=== PATIENT | female | born 1975 | race Caucasian/White ===

== ENCOUNTER 2022-10-15 11:07 | Outpatient (REF) | payer OTHER, SELFPAY ==
[2022-10-15 14:42] LABS: Alanine Aminotransferase 20 U/L (0-31); Anion Gap 11 (12-20); Aspartate Amino Transferase 17 U/L (5-31); Blood Urea Nitrogen 12 mg/dL (9-16); Calcium 9.5 mg/dL (8.4-10.2); Carbon Dioxide 27 mmol/L (22-29); Chloride 104 mmol/L (96-108); Cholesterol 243 mg/dL; Estimated Glomerular Filt Rate > 60; Glucose Fasting 95 mg/dL (60-99); HDL Cholesterol 39 mg/dL; LDL Cholesterol Calculated 138 mg/dl; Potassium 4.2 mmol/L (3.3-5.1); Sodium 138 mmol/L (135-145); Triglycerides 332 mg/dL; Vitamin D 25-OH Total 39.7 ng/mL (>30)
== END 2022-10-15 11:08 | disposition home or self-care (01) ==
LOC: HO.HMGCLDS 11:07
PROVIDERS: PCP Internal Medicine; Visit Provider Internal Medicine
DX: Z00.01 Encounter for general adult medical examination with abnormal findings (principal)
CPT/HCPCS: 36415; 80048; 80061; 82306; 84450; 84460

== ENCOUNTER → 2022-12-17 10:55 | Outpatient (BNVA) | payer OTHER, SELFPAY | PROVIDERS: PCP Internal Medicine; Referring Provider Internal Medicine; Visit Provider Physician Assistant | DX: Z13.89 Encounter for screening for other disorder (principal) ==

== ENCOUNTER 2023-05-31 08:37 | Day surgery (SDC) | payer OTHER, SELFPAY ==
[2023-05-29 11:00] VITALS: BMI 25.5
--- NOTE | 2023-05-30 10:13 | HO.ANESPROP2 ---
Documented by User: Carmel Paulino NP 05/30/23 10:14 HPI - Anesthesia Eval Consult details Narrative: 48yo F for Colonoscopy PMFSH Active Problems Active Problems: All Active Problems (Updated 01/15/23 @ 15:43 by Joshua Cantu MD) Paronychia of finger of right hand (Acute) Constipation (Acute) Encounter for screening colonoscopy (Acute) Otitis media (Acute) Past Medical History Medical History (Updated 05/31/23 @ 08:49 by Laura Gleason RN) History of COVID-19 Hx of cervical cancer Family History Family History Mother Anxiety Migraine Sister Mental health disorder Father Prostate cancer Paternal Uncle Colon cancer Skin cancer (melanoma) Surgical History Surgical History (Updated 05/31/23 @ 08:56 by Laura Gleason RN) Hx of section Hx of hernia repair Hx of tonsillectomy Social History Social History Household Members Other:: 2 daughters, 1 grandson- Housing: Apartment Patient Tobacco Use Status: Former Tobacco user Quit Date: 2000 e-Cigarette/Vaping Use: Never Used Use of substances other than those prescribed or required for medical reasons: No Are you DNR?: No Advance Directives: No Advance Directives Information Provided: Yes Current occupational status: employed Cognitive needs: No Hearing needs: No Vision needs: Yes Meds Allergies Allergy/AdvReac Type Severity Reaction Status Date / Time amoxicillin AdvReac Vomiting Verified 05/31/23 08:54 azithromycin AdvReac Vomiting Verified 05/31/23 08:54 Penicillins AdvReac rash Verified 05/31/23 08:54 Sulfa (Sulfonamide AdvReac Anaphylaxis Verified 05/31/23 08:54 Antibiotics) tetracycline AdvReac Vomiting Verified 05/31/23 08:54 Home Medications Medication Instructions Recorded Confirmed Last Taken Type levonorgestrel 21 mcg/24 hours (8 1 device intrauterine DIRECTED 07/28/22 10/15/22 Unknown History yrs) 52 mg intrauterine device (Mirena) loratadine 10 mg tablet (Claritin) 10 mg PO DAILY 07/28/22 10/15/22 Unknown History ivermectin 1 % topical cream 1 appl topical DAILY 10/15/22 10/15/22 Unknown History (Soolantra) Probiotic 1 PO DAILY 05/31/23 Unknown History multivitamin tab 05/31/23 05/31/23 Unknown History omega-3 fatty acids 1 PO DAILY 05/31/23 Unknown History Exam Exam Date and Time: May 30, 2023 1013 Height,Weight and Vital Signs: Height 5 ft 1 in Weight 61.235 kg Assessment and Plan Assessment Anesthesia Assessment: Chart Reviewed Documented by User: Flower Garza MD 05/31/23 09:20 PMFSH Past Medical History Medical History (Updated 05/31/23 @ 08:49 by Laura Gleason RN) History of COVID-19 Hx of cervical cancer Family History Family History Mother Anxiety Migraine Sister Mental health disorder Father Prostate cancer Paternal Uncle Colon cancer Skin cancer (melanoma) Family history of problems with anesthesia: No Surgical History Surgical History (Updated 05/31/23 @ 08:56 by Laura Gleason, RN) Hx of section Hx of hernia repair Hx of tonsillectomy History of Problems with Anesthesia: No Social History Social History Household Members Other:: 2 daughters, 1 grandson- Housing: Apartment Patient Tobacco Use Status: Former Tobacco user Quit Date: 2000 e-Cigarette/Vaping Use: Never Used Use of substances other than those prescribed or required for medical reasons: No Are you DNR?: No Advance Directives: No Advance Directives Information Provided: Yes Current occupational status: employed Cognitive needs: No Hearing needs: No Vision needs: Yes Meds Allergies Allergy/AdvReac Type Severity Reaction Status Date / Time amoxicillin AdvReac Vomiting Verified 05/31/23 08:54 azithromycin AdvReac Vomiting Verified 05/31/23 08:54 Penicillins AdvReac rash Verified 05/31/23 08:54 Sulfa (Sulfonamide AdvReac Anaphylaxis Verified 05/31/23 08:54 Antibiotics) tetracycline AdvReac Vomiting Verified 05/31/23 08:54 Home Medications Medication Instructions Recorded Confirmed Last Taken Type levonorgestrel 21 mcg/24 hours (8 1 device intrauterine DIRECTED 07/28/22 10/15/22 Unknown History yrs) 52 mg intrauterine device (Mirena) loratadine 10 mg tablet (Claritin) 10 mg PO DAILY 07/28/22 10/15/22 Unknown History ivermectin 1 % topical cream 1 appl topical DAILY 10/15/22 10/15/22 Unknown History (Soolantra) Probiotic 1 PO DAILY 05/31/23 Unknown History multivitamin tab 05/31/23 05/31/23 Unknown History omega-3 fatty acids 1 PO DAILY 05/31/23 Unknown History Exam Airway Mallampati Class: II TM Dist: >3cm Neck ROM: Full Assessment and Plan Assessment Anesthesia Assessment: Anesthesia Plan Discussed Final Anesthetic Review Family History of Problems with Anesthesia: No History of Problems with Anesthesia: No NPO: Yes ASA Class: II Final Preanesthetic Review: No Changes in Pt Med Stat, Meds/Allgs Chart Reviewed, Consent Obtained/Reviewed and Anes Risks/Benef Reviewed Patient Risk: Low Procedure Risk: Low Anesthetic Plan Anesthetic Plan: MAC: Disposition: Standard PACU
--- NOTE | 2023-05-31 08:45 | MHC.SHP ---
Pre-Procedural Eval Section A Date of Service: 05/31/23 The patient is an INPATIENT: No The History & Physical has been completed within 30 days and I have reviewed it.: No Section B Chief Complaint: screening, family hx of colon cancer and polyps Relevant Family History (Specify if Yes): Yes Relevant Social History: Tobacco Use (former smoker) Present Medications: see Short Stay Collaborative assessment Medical History: Significant History (hx of COVID 19 infection) History of Previous Operations: Relevant previous surgery/procedure and date(s) (Hx of section Hx of tonsillectomy) Allergies: Allergies Allergy/AdvReac Type Severity Reaction Status Date / Time amoxicillin AdvReac Vomiting Verified 01/15/23 14:41 azithromycin AdvReac Vomiting Verified 01/15/23 14:41 Penicillins AdvReac rash Verified 01/15/23 14:41 Sulfa (Sulfonamide AdvReac Anaphylaxis Verified 01/15/23 14:41 Antibiotics) tetracycline AdvReac Vomiting Verified 01/15/23 14:41 Review of Systems Sugical H&P ROS: Negative: Constitution, Cardiovascular and Gastrointestinal Exam Surgical H&P Exam: Normal: Heart, Normal: Lungs, Normal: Extremities and Normal: Abdomen Plan Diagnosis/Plan: Unchanged I have reviewed the history and physical and performed a pertinent physical examination on my patient. No changes have occurred unless specified. Time Spent With Patient Time: Total time managing care of this patient today ____ minutes.
--- NOTE | 2023-05-31 08:51 | P.OP_ITS ---
Operative Note Operative Note Date of Service: 05/31/23 Narrative: COLONOSCOPY TILL CECUM WITH SNARE POLYPECTOMY, SUBMUCOSAL INJECTION AND HEMOCLIP PLACEMENT Pre-op diagnosis: screening, family history of colon polyps and colon cancer (two uncles in their 50's) Post-op diagnosis:? colon polyp, diverticulosis Endoscopist:? Graeme Vora MD Anesthesia:?MAC Consent: Indications for the procedure and potential complications of bleeding, perforation, reaction to medications and missed diagnosis were discussed with the patient and informed consent was obtained. Instrument: Olympus PCF H 190 L variable stiffness pediatric colonoscope Monitoring: Vital signs and clinical assessment, intermittent blood pressure monitoring, continuous EKG monitoring, Pulse oximetry and Carbon Dioxide monitoring were done throughout the procedure. Please see anesthesia flowsheet. Colon withdrawl time was 16 minutes. Procedure: The patient was placed in the left lateral decubitis position and pre-procedure medications were administered. After a digital rectal examination of the ano-rectum, the video colonoscope was inserted into the rectum and advanced through the colon to the cecum. The colonoscope was slowly withdrawn in a retrograde panoramic fashion and the colon mucosa was carefully examined including a retroflexed view of the rectum. Findings and interventions are described below. Procedure Difficulty: Without difficulty Findings: Terminal Ileum: Not evaluated Cecum: Normal Ascending Colon: A 15 to 18 mm flat polyp in the distal AC at 75 cms. Polyp was raised with 2 cc of normal saline and removed with a hot stiff snare. Polypectomy site was closed with 1 hemoclip and marked by Temitope ink. Transverse Colon: Normal Descending Colon: moderate diverticulosis Sigmoid Colon: severe diverticulosis with luminal narrowing Rectum: Normal Ano-rectum: normal Colon preparation: Excellent Impression and Post Procedure Diagnosis: Colonoscopy Findings: One medium sized polyp removed Moderate to severe diverticulosis seen in the left colon Plan: Await pathology results Patient has an appointment on 06/10/23 in the GI Clinic with BENSON Schuler. Repeat Colonoscopy interval based on path results - in 1 year if polyp is adenomatous to check polypectomy site at 75 cms and 5 years if polyps is h yperplastic (due to positive family history). Above findings were reviewed with the patient and colon polyps and diverticulosis handouts were given in the discharge area
[2023-05-31 09:03] VITALS: BP 130/77; PULSE 96; RESP 15; TEMP 36.2; O2SAT 98
[2023-05-31 09:19] LABS: UPreg QC Valid YES; Urine Pregnancy NEGATIVE (NEGATIVE)
[2023-05-31] MEDS: Lactated Ringers 1,000 ML 100 ML IVCONT (09:22)
[2023-05-31 10:05] VITALS: BP 97/53; PULSE 80; RESP 16; TEMP 36.3; O2SAT 95
[2023-05-31 10:23] VITALS: BP 109/70; PULSE 77; RESP 16; TEMP 36.2; O2SAT 99
== END 2023-05-31 10:50 | disposition home or self-care (01) ==
PROVIDERS: Anesthesiology; Nurse Practitioner; PCP Internal Medicine; Visit Provider Internal Medicine Gastroenterology
PROC: 0DJD8ZZ Inspection of Lower Intestinal Tract, Via Natural or Artificial Opening Endoscopic (ICD-10-PCS; CPT 45378; principal; 2023-05-31 09:50)
DX: Z12.11 Encounter for screening for malignant neoplasm of colon (principal); D12.2 Benign neoplasm of ascending colon; K57.30 Diverticulosis of large intestine without perforation or abscess without bleeding; K59.00 Constipation, unspecified; Z79.899 Other long term (current) drug therapy; Z85.41 Personal history of malignant neoplasm of cervix uteri; Z86.16 Personal history of COVID-19; Z88.0 Allergy status to penicillin; Z88.1 Allergy status to other antibiotic agents; Z88.2 Allergy status to sulfonamides; Z87.891 Personal history of nicotine dependence
CPT/HCPCS: 45385; 45381; 81025; 88305

== ENCOUNTER → 2023-05-31 08:37 | Outpatient (BNV) | payer OTHER, SELFPAY | PROVIDERS: PCP Internal Medicine; Visit Provider Internal Medicine Gastroenterology | DX: Z12.11 Encounter for screening for malignant neoplasm of colon (principal); Z83.71 Family history of colonic polyps; Z80.0 Family history of malignant neoplasm of digestive organs; K63.5 Polyp of colon | CPT/HCPCS: 45381; 45385 ==

== ENCOUNTER 2023-06-10 08:57 | Outpatient (AMB) | payer OTHER, SELFPAY ==
--- NOTE | 2023-06-10 09:04 | MHC.OFFVIS ---
Intake Vital Signs 06/10/23 09:15 Height 5 ft 1 in Weight 136 lb BMI 25.7 BP 113/64 Blood Pressure Location Lt brachial Position Sitting Pulse 72 Intake Visit Reasons: S/P [place]; Dr. Vora Intake Note: Patient follow up for constipation and colonoscopy results. Patient cc: between Constipation and diarrhea, abdominal bloating, and heartburn. Denies any other GI issues. 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: No Accompanied by: Self / Same As Patient Allergies amoxicillin Adverse Reaction (Verified 06/10/23 09:03) Vomiting azithromycin Adverse Reaction (Verified 06/10/23 09:03) Vomiting Penicillins Adverse Reaction (Verified 06/10/23 09:03) rash Sulfa (Sulfonamide Antibiotics) Adverse Reaction (Verified 06/10/23 09:03) Anaphylaxis tetracycline Adverse Reaction (Verified 06/10/23 09:03) Vomiting HPI HPI Comments History of Present Illness Details A 48 y/o female follows up after recent index screening colonoscopy with polypectomy-she expresses her satisfaction with her experience with staff She has alternating stool pattern however- reviewed procedure report and pathology She has no nausea, vomiting, hematemesis, hematochezia fever PFSH Medical History History of COVID-19 Hx of cervical cancer Surgical History Hx of section Hx of colonoscopy Hx of hernia repair Hx of tonsillectomy Family History Mother Anxiety Migraine Sister Mental health disorder Father Prostate cancer Paternal Uncle Colon cancer Skin cancer (melanoma) Social History Household Members Other:: 2 daughters, 1 grandson- Housing: Apartment Patient Tobacco Use Status: Former Tobacco user Quit Date: 2000 e-Cigarette/Vaping Use: Never Used Current occupational status: employed Cognitive needs: No Hearing needs: No Vision needs: Yes Review of Systems Const All systems reviewed & are unremarkable except as noted in HPI and below Card Denies chest pain and Denies dyspnea Resp Denies dyspnea GI Denies abdominal pain and Denies hematochezia Physical Exam Vital Signs: Last Vital Signs Pulse 72 06/10/23 09:15 BP 113/64 08/07/23 09:15 BMI result Body Mass Index 25.7 Const General: cooperative, healthy appearing, comfortable and no acute distress Orientation/consciousness: patient oriented x3 Limitations: no limitations Neuro General: patient oriented x3 Extrem General: Yes full ROM Psych Appearance: grossly normal and well kempt Mental Status: mental status grossly normal Speech and movement: Normal speech and movement present and Clear speech present Affect: normal affect Attitude: cooperative Thought process: Normal thought process present Thought content: Normal thought content present Insight: Good insight present (Psych) Judgement: Good judgement present (Psych) Results Reviewed Results Reviewed: Findings: Terminal Ileum: Not evaluated Cecum:? Normal Ascending Colon:? A 15 to 18 mm flat polyp in the distal AC at 75 cms. Polyp was raised with 2 cc of normal saline and removed with a hot stiff snare. ? Polypectomy site was closed with 1 hemoclip and marked by Temitope ink. Transverse Colon:? Normal Descending Colon: ? moderate diverticulosis Sigmoid Colon: ? severe diverticulosis with luminal narrowing Rectum:? Normal Ano-rectum: ? normal Colon preparation: Excellent ? Impression and Post Procedure Diagnosis: Colonoscopy Findings: One medium sized polyp removed Moderate to severe diverticulosis seen in the left colon Plan: Await pathology results Patient has an appointment on 06/10/23 in the GI Clinic with BENSON Schuler. Repeat Colonoscopy interval based on path results - in 1 year if polyp is adenomatous to check polypectomy site at 75 cms and 5 years if polyps is hyperplastic (due to positive family history). Name:? Age/Sex: 48/F Attending: Graeme Vora MD : 1975 Submitted by: Graeme Vora MD Copies to: Henny Piña MD MR #: [id number] ? Status: DEP [facility] [place] Collected: 05/31/23 Location: [facility] Received: 05/31/23 Diagnosis Colon, ascending at 75 cm, polyp:? Sessile serrated lesion/polyp without dysplasia. Clinical History Pre-Op Dx:? Screening, family history of colon cancer Post-Op Dx: Colon polyp, diverticulosis Microscopic Description Multiple microscopic sections reviewed. Assessment & Plan Assessment & Plan (1) Sessile colonic polyp: Code(s): K63.5 - Polyp of colon Plan: Repeat colonoscopy 1 year (2) Diverticulosis of colon: Comment: The ER protocol-discussed Literature given- Maintain high-fiber diet Foods to avoid Code(s): K57.30 - Diverticulosis of large intestine without perforation or abscess without bleeding Plan: Literature given Plan Repeat colonoscopy- 1 year- Diverticulosis-ER protocol HFD AFDR- begin screening by age 40 Patient Instructions: 48-year-old female follows up after recent index screening colonoscopy with polypectomy Review procedure report and pathology opportunity for questions answered to her satisfaction Repeat colonoscopy 1 year All first-degree relatives begin screening by age 40 Literature given diverticulosis/high-fiber diet Discussed ER protocol Encouraged to call with questions or concerns Appreciate the opportunity assist in the care the patient Coding Level of Care Code Est Pt Level 3 (42053) Diagnoses Sessile colonic polyp K63.5 Diverticulosis of colon K57.30 Time Spent (min) 25
[2023-06-10 09:15] VITALS: BP 113/64; PULSE 72; BMI 25.7
== END 2023-06-10 09:47 | disposition home or self-care (01) ==
PROVIDERS: PCP Internal Medicine; Visit Provider Physician Assistant
DX: K63.5 Polyp of colon (principal); K57.30 Diverticulosis of large intestine without perforation or abscess without bleeding
CPT/HCPCS: 99213

== ENCOUNTER → 2023-06-10 08:57 | Outpatient (BNVA) | payer OTHER, SELFPAY | PROVIDERS: Visit Provider Physician Assistant ==

== ENCOUNTER 2024-03-19 07:46 | Outpatient (REF) | payer OTHER, SELFPAY ==
[2024-03-19 10:22] LABS: Hematocrit 41.2 % (37.0-47.0)
[2024-03-19 10:47] LABS: Alanine Aminotransferase 36 U/L (0-31); Anion Gap 12 (12-20); Aspartate Amino Transferase 27 U/L (5-31); Blood Urea Nitrogen 13 mg/dL (9-16); Calcium 9.4 mg/dL (8.4-10.2); Carbon Dioxide 26 mmol/L (22-29); Chloride 105 mmol/L (96-108); Cholesterol 260 mg/dL (<200); Estimated Glomerular Filt Rate > 60; Glucose Fasting 96 mg/dL (60-99); HDL Cholesterol 36 mg/dL (>40); LDL Cholesterol Calculated 147 mg/dL (<100); Potassium 4.2 mmol/L (3.3-5.1); Sodium 139 mmol/L (135-145); Triglycerides 389 mg/dL (<150)
[2024-03-19 11:04] LABS: Vitamin D 25-OH Total 62.2 ng/mL (>30)
== END 2024-03-19 07:47 | disposition home or self-care (01) ==
LOC: HO.HMGCLDS 07:46
PROVIDERS: PCP Internal Medicine; Visit Provider Internal Medicine
DX: Z13.220 Encounter for screening for lipoid disorders (principal); Z13.1 Encounter for screening for diabetes mellitus; K63.5 Polyp of colon
CPT/HCPCS: 36415; 80048; 80061; 82306; 84450; 84460; 85014; 85018

== ENCOUNTER 2024-04-02 15:13 | Outpatient (AMB) | payer OTHER, SELFPAY ==
--- NOTE | 2024-04-02 15:15 | MHC.PC.OV ---
Vital Signs 04/02/24 15:16 Height 5 ft 1 in Weight 143 lb BMI 27.0 BP 130/80 Blood Pressure Location Lt brachial Position Sitting Pulse 71 Pulse Source Pulse Oximeter Pulse Oximetry (%) 98 Oxygen Delivery Method Room Air Intake Visit Reasons: Rash left leg Intake Note: Pt is here today c/o rash Lt leg appeared yesterday Allergies amoxicillin Adverse Reaction (Verified 04/06/24 02:58) Vomiting azithromycin Adverse Reaction (Verified 04/06/24 02:58) Vomiting Penicillins Adverse Reaction (Verified 04/06/24 02:58) rash Sulfa (Sulfonamide Antibiotics) Adverse Reaction (Verified 04/06/24 02:58) Anaphylaxis tetracycline Adverse Reaction (Verified 04/06/24 02:58) Vomiting Medication List - Last Reconciled 04/06/24 by Henny Piña MD gabapentin 100 mg PO BEDTIME ivermectin 1% (Soolantra) 1 appl topical DAILY levonorgestrel (Mirena) 1 device intrauterine DIRECTED loratadine (Claritin) 10 mg PO DAILY multivitamin tabs omega-3 fatty acids 1 PO DAILY omeprazole 10 mg PO DAILY [Probiotic 1 PO DAILY] valacyclovir 1,000 mg PO Q8H 7 days Tobacco use date assessed: 04/02/24 Dental Screening Dental Screen Date: 04/02/24 Did you have a dental visit in the last 12 months?: Yes Did you have a dental problem in the last 6 months where you did not have access to dental care?: Yes Was dental information given to patient?: Patient has dentist HPI Rash left leg HPI Details 49-year-old lady here today complaining of her rash appearing on her left posterior thigh yesterday. She however has been feeling a burning sensation on the same area 2 days ago, now with appearance of rash which seems to be spreading. Complains of severe pruritus and burning sensation specially at night PFSH Medical History (Updated 04/02/24 @ 16:07 by Henny Piña MD) Herpes zoster Hx of cervical cancer History of COVID-19 Surgical History Hx of colonoscopy Hx of hernia repair Hx of section Hx of tonsillectomy Family History Mother Anxiety Migraine Sister Mental health disorder Father Prostate cancer Paternal Uncle Colon cancer Skin cancer (melanoma) Social History Household Members Other:: 2 daughters, 1 grandson- Housing: Apartment Patient Tobacco Use Status: Former Tobacco user e-Cigarette/Vaping Use: Never Used Current occupational status: employed Cognitive needs: No Hearing needs: No Vision needs: Yes Questionnaire PHQ-9 Over the last 2 weeks, how often have you been bothered by any of the following problems? 1. Little interest or pleasure in doing things: not at all 2. Feeling down, depressed, or hopeless: not at all 3. Trouble falling or staying asleep, or sleeping too much: not at all 4. Feeling tired or having little energy: not at all 5. Poor appetite or overeating: not at all 6. Feeling bad about yourself - or that you are a failure or have let yourself or your family down: not at all 7. Trouble concentrating on things, such as reading the newspaper or watching television: not at all 8. Moving or speaking so slowly that other people could have noticed. Or the opposite - being so fidgety or restless that you have been moving around a lot more than usual: not at all 9. Thoughts that you would be better off or of hurting yourself in some way: not at all Total score: 0 Depression Screening Interpretation: Negative Depression Screening Done: Yes 55843 - PHQ-9 Billing: Yes Source: Developed by Drs. Schuyler Rivera, Nelda Tobin, Carroll Salgado and colleagues, with an educational adriano from [employer]. Thrive Questionnaire Date Thrive assessed: 04/02/24 I am a: Patient What is your living situation today?: I have a steady place to live Within the past 12 months, did the food you bought not last and you didn't have the money to get more?: Never true Within the past 12 months, did you worry whether your food would run out before you got money to buy more?: Never true Do you have trouble paying for medicines?: No Do you have trouble getting transportation to medical appointments?: No Do you have trouble paying your heating and electricity bill?: No Do you have trouble taking care of your child, family member or friend?: No Do you have trouble with day-to-day activities such as bathing, preparing meals, shopping, managing finances, etc.?: No Are you currently unemployed and looking for a job?: No Are you interested in more education?: No THRIVE Score: 0 AUDIT C Alcohol Use Questionnaire (AUDIT-C) 1. How often do you have a drink containing alcohol?: Never Total Score: 0 IRASEMA-7 AMB Questionnaire IRASEMA-7 Date IRASEMA - 7 assessed: 04/02/24 Feeling nervous, anxious, or on edge: 0 = Not at all Not being able to stop or control worryin = Not at all Worrying too much about different things: 0 = Not at all Trouble relaxin = Not at all Being so restless that it is hard to sit still: 0 = Not at all Becoming easily annoyed or irritable: 0 = Not at all Feeling afraid as if something awful might happen: 0 = Not at all Total IRASEMA-7 score (0-4 normal; 5-9 mild; 10-14 moderate; 15-21 severe): 0 Source: Developed by Drs. Schuyler Rivera, Nelda Tobin, Carroll Salgaod and colleagues, with an educational adriano from [employer]. Review of Systems Const All systems reviewed & are unremarkable except as noted in HPI and below Physical exam (Primary Care) Vital Signs: Last Vital Signs Pulse 71 04/02/24 15:16 BP 130/80 04/02/24 15:16 Pulse Ox 98 04/02/24 15:16 Oxygen Delivery Method Room Air 04/02/24 15:16 BMI result Body Mass Index 27.0 Tobacco/Smoking Status: Tobacco use Status Tobacco use date assessed 04/02/24 04/02/24 15:24 Patient Tobacco Use Status Former Tobacco user 04/02/24 15:24 e-Cigarette/Vaping Use Never Used 04/02/24 15:24 PHQ-9: PHQ-9 Score PHQ-9: Total score 0 04/02/24 16:07 Depression Screening Interpretation: Negative Thrive Assessment: Date of Thrive Assessment Date Thrive assessed 04/02/24 04/02/24 15:24 Const General: comfortable and no acute distress Orientation/consciousness: patient oriented x3 HENMT Head: Yes atraumatic Ears: hearing grossly normal bilaterally and EAC's normal General nose exam: Normal external nose present Face and sinus: Yes face symmetric Mouth: Normal oral and palatal mucosa present, oropharynx normal and moist mucous membranes Eyes General: appearance normal, both eyes and all related structures Neck Neck: Yes full ROM, Yes no lymphadenopathy and Yes supple Chest Breast/axilla inspection: normal inspection of the breasts Breast/axilla palpation: normal palpation of the breasts Resp Effort & Inspection: normal respiratory effort and able to speak in complete sentences Auscultation: clear to auscultation bilaterally Cardio Rate: regular rate Rhythm: regular rhythm Heart sounds: S1 normal heart sound present and S2 normal heart sound present GI Inspection: Yes normal to inspection Palpation (GI): Soft to palpation, nontender, no guarding and Palpable mass present Auscultation: normal bowel sounds General: Yes no CVA tenderness and Yes 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) Back/Spine/Pelvis Back: no CVA tenderness Skin Other: Vesicular rash with erythematous base on left posterior thigh Neuro General: patient oriented x3 Extrem General: Yes full ROM, Yes no joint enlargement, Yes no clubbing, cyanosis or edema, Yes no calf tenderness and Yes normal gait Assessment and Plan Assessment & Plan (1) Herpes zoster: Comment: Left posterior thigh Code(s): B02.9 - Zoster without complications Qualifiers: Herpes zoster complications: without complications Qualified Code(s): B02.9 - Zoster without complications Plan: Prescriptions sent for valacyclovir 1000 mg per tablet to take 1 every 8 hours for 7 days., she was also given prescription for gabapentin 100 mg per capsule, to take 1 capsule initially at bedtime, may increase dose to 2 capsules at night if pain and pruritus persists. She may also try using [id number] capsaicin cream as directed to relieve itching and pain over is affected area Medications: New valacyclovir 1,000 mg PO Q8H 21 tabs 0RF 7 days B02.9 - Zoster without complications gabapentin 100 mg PO BEDTIME 30 caps 0RF B02.9 - Zoster without complications Coding Level of Care Code Est Pt Level 4 (60978) Diagnoses Herpes zoster without complication B02.9 Herpes zoster complications: without complications
[2024-04-02 15:16] VITALS: BP 130/80; PULSE 71; O2SAT 98; BMI 27.0
== END 2024-04-02 16:23 | disposition home or self-care (01) ==
PROVIDERS: PCP Internal Medicine; Visit Provider Internal Medicine
DX: B02.9 Zoster without complications (principal)
CPT/HCPCS: 99214

== ENCOUNTER 2024-04-08 08:14 | Outpatient (AMB) | payer OTHER, SELFPAY ==
--- NOTE | 2024-04-08 08:29 | MHC.PC.OV ---
Vital Signs 04/08/24 08:31 Height 5 ft 1 in Weight 144 lb BMI 27.2 BP 118/68 Blood Pressure Location Lt brachial Position Sitting Pulse 79 Pulse Source Pulse Oximeter Pulse Oximetry (%) 96 Oxygen Delivery Method Room Air Intake Visit Reasons: PE Intake Note: Pt is here today for her PE: Last mammogram 04/18/23, papsmear 12/26/23, colonoscopy 05/31/23 Allergies amoxicillin Adverse Reaction (Verified 04/08/24 08:39) Vomiting azithromycin Adverse Reaction (Verified 04/08/24 08:39) Vomiting Penicillins Adverse Reaction (Verified 04/08/24 08:39) rash Sulfa (Sulfonamide Antibiotics) Adverse Reaction (Verified 04/08/24 08:39) Anaphylaxis tetracycline Adverse Reaction (Verified 04/08/24 08:39) Vomiting Medication List - Last Reconciled 04/08/24 by Henny Piña MD ivermectin 1% (Soolantra) 1 appl topical DAILY levonorgestrel (Mirena) 1 device intrauterine DIRECTED loratadine (Claritin) 10 mg PO DAILY multivitamin tabs omega-3 fatty acids 1 PO DAILY omeprazole 10 mg PO DAILY [Probiotic 1 PO DAILY] valacyclovir 1,000 mg PO Q8H 7 days Tobacco use date assessed: 04/08/24 Dental Screening Dental Screen Date: 04/08/24 Did you have a dental visit in the last 12 months?: Yes Did you have a dental problem in the last 6 months where you did not have access to dental care?: Yes Was dental information given to patient?: Patient has dentist HPI PE HPI Details 49-year-old lady here today for her physical exam. Recently diagnosed with herpes zoster,, with rash almost cleared out and minimal pain over site. She is up-to-date with her mammogram, last done 04/18/23, up-to-date with her papsmear done 12/26/23, and screening colonoscopy 05/31/23 has been feeling well with no complaints at present time. [facility] Medical History (Updated 04/08/24 @ 08:59 by Henny Piña MD) Mixed dyslipidemia Herpes zoster Hx of cervical cancer History of COVID-19 Surgical History Hx of colonoscopy Hx of hernia repair Hx of section Hx of tonsillectomy Family History Mother Anxiety Migraine Sister Mental health disorder Father Prostate cancer Paternal Uncle Colon cancer Skin cancer (melanoma) Social History Household Members Other:: 2 daughters, 1 grandson- Housing: Apartment Patient Tobacco Use Status: Former Tobacco user e-Cigarette/Vaping Use: Never Used Current occupational status: employed Cognitive needs: No Hearing needs: No Vision needs: Yes Questionnaire PHQ-9 Over the last 2 weeks, how often have you been bothered by any of the following problems? Depression Screening Interpretation: Negative Depression Screening Done: Yes Source: Developed by Drs. Schuyler Rivera, Nelda Tobin, Carroll Salgado and colleagues, with an educational adriano from [employer]. Thrive Questionnaire Date Thrive assessed: 04/02/24 IRASEMA-7 AMB Questionnaire IRASEMA-7 Date IRASEMA - 7 assessed: 04/02/24 Source: Developed by Drs. Schuyler Rivera, Nelda Tobin, Carroll Salgado and colleagues, with an educational adriano from [employer]. Review of Systems Const Denies body aches, Denies fatigue, Denies fever(s), Denies headache(s) and Denies weakness Eyes Details: Goes to [facility] for her routine eye exam Denies change in vision ENT Denies dizziness, Denies headache(s), Denies nasal congestion, Denies nasal discharge and Denies sore throat Card Denies chest pain, Denies lightheadedness, Denies palpitations and Denies dyspnea Resp Denies chest congestion, Denies cough, Denies dyspnea and Denies wheezing GI Denies abdominal pain, Denies change in bowel habits and Denies heartburn Denies hematuria, Denies urinary frequency, Denies dysuria and Denies urinary urgency Musc Reports no additional complaints Skin/Breast Denies breast pain and Denies breast mass Neuro Denies dizziness, Denies headache(s) and Denies weakness Psych Reports no additional complaints Endo Denies fatigue, Denies polydipsia, Denies polyuria and Denies palpitations Primo/Lymph Denies easy bruising Aller/Immun Denies seasonal rhinorrhea and Denies wheezing Physical exam (Primary Care) Vital Signs: Last Vital Signs Pulse 79 04/08/24 08:31 BP 118/68 04/08/24 08:31 Pulse Ox 96 04/08/24 08:31 Oxygen Delivery Method Room Air 04/08/24 08:31 BMI result Body Mass Index 27.2 Tobacco/Smoking Status: Tobacco use Status Tobacco use date assessed 04/08/24 04/08/24 08:31 Patient Tobacco Use Status Former Tobacco user 04/08/24 08:31 e-Cigarette/Vaping Use Never Used 04/08/24 08:31 Depression Screening Interpretation: Negative Thrive Assessment: Date of Thrive Assessment Date Thrive assessed 04/02/24 04/08/24 08:31 Const General: comfortable and no acute distress Orientation/consciousness: patient oriented x3 HENMT Head: Yes atraumatic Ears: hearing grossly normal bilaterally and EAC's normal General nose exam: Normal external nose present Face and sinus: Yes face symmetric Mouth: Normal oral and palatal mucosa present, oropharynx normal and moist mucous membranes Eyes General: appearance normal, both eyes and all related structures Neck Neck: Yes full ROM, Yes no lymphadenopathy and Yes supple Chest Breast/axilla inspection: normal inspection of the breasts Breast/axilla palpation: normal palpation of the breasts Resp Effort & Inspection: normal respiratory effort and able to speak in complete sentences Auscultation: clear to auscultation bilaterally Cardio Rate: regular rate Rhythm: regular rhythm Heart sounds: S1 normal heart sound present and S2 normal heart sound present GI Inspection: Yes normal to inspection Palpation (GI): Soft to palpation, nontender, no guarding and Palpable mass present Auscultation: normal bowel sounds General: Yes no CVA tenderness and Yes deferred (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) Back/Spine/Pelvis Back: no CVA tenderness Skin Other: Dry slightly erythematous patch on left posterior thigh, no tenderness on palpation Neuro General: patient oriented x3 Extrem General: Yes full ROM, Yes no joint enlargement, Yes no clubbing, cyanosis or edema, Yes no calf tenderness and Yes normal gait Psych Appearance: grossly normal and well kempt Mental Status: mental status grossly normal Speech and movement: Normal speech and movement present Affect: normal affect Results Reviewed Results Reviewed: Laboratory Tests 03/19/24 07:55 Hgb 14.0 Hct 41.2 Name: Liliya De León Age/Sex: 49/F : 1975 Unit#: [id number] Attend Dr: Henny Piña MD Re03/19/24 Status: DEP REF Location: [facility] Disch: SPEC : [id number] PAULINO: 03/19/24 STATUS: COMP REQ : [id number] RECD: 03/19/24-[address]: Henny Piña MD COMP: 03/19/24-1103 ENTERED: 03/19/24-[address]: ORDERED: Met Prof Fast, AST, ALT, Lipid Panel, Vitamin D 25-OH Test Result Flag Reference Sodium 139 135-145 mmol/L Potassium 4.2 3.3-5.1 mmol/L CL 105 96-108 mmol/L CO2 26 22-29 mmol/L Gap 12 12-20 BUN 13 9-16 mg/dL Creat 0.95 0.5-1.4 mg/dL EGFR > 60 NOTE: For -Welsh individuals, multiply the result by 1.210. Chronic Kidney Disease: Estimated GFR < 60 mL/min/1.73m2 Severe Kidney Disease: Estimated GFR < 15 mL/min/1.73m2 FBS 96 60-99 mg/dL CA 9.4 8.4-10.2 mg/dL AST (GOT) 27 5-31 U/L ALT (GPT) 36 H 0-31 U/L Triglyceride 389 H <150 mg/dL Desirable Triglyceride: less than 150 mg/dL Borderline High Triglyceride 150-199 mg/dL High Triglyceride: 200-499 mg/dL Very High Triglyceride: greater than or equal to 5OO mg/dL Cholesterol 260 H <200 mg/dL Desirable Cholesterol: less than 200 mg/dL Borderline High Cholesterol: 200-239 mg/dL High Cholesterol: greater than 239 mg/dL LDL Calculated 147 H <100 mg/dL Desirable LDL: less than 100 mg/dL Near Optimal/Above Optimal LDL: 110-129 mg/dL Borderline High LDL: 130-159 mg/dL High LDL: 160-189 mg/dL Very High LDL: greater than or equal to 190 mg/dL HDL 36 L >40 mg/dL Desirable HDL: greater than 40 mg/dL Note: This HDL assay may give artificially low results in patients with liver disease. Vit D 25-OH Tot 62.2 >30 ng/mL Health Based Reference Values* < 20 ng/mL Deficient 20-30 ng/mL Insufficient > 30 ng/mL Sufficient Assessment and Plan Assessment & Plan (1) Annual visit for general adult medical examination with abnormal findings: Code(s): Z00.01 - Encounter for general adult medical examination with abnormal findings Plan: Reviewed recent fasting lab results with patient. Continue with regular dental visit every 6 months and regular eye exams, at least every 2 years goes to [facility].. Take adequate calcium in diet and vitamin-D 3 at 2000 IU per cap once a day, in addition to weight-bearing exercises to help maintain good muscle tone and weight control. Instructed to do self-breast exam, and continue with yearly mammogram, currently up-to-date. She is also up-to-date with her cervical cancer screening, goes to [facility]. And is up-to-date with her screening colonoscopy. Reminded to get yearly flu vaccine, up-to-date with Tdap, has had COVID vaccinations but does not want to get the booster. (2) Herpes zoster: Comment: Left posterior thigh Code(s): B02.9 - Zoster without complications Qualifiers: Herpes zoster complications: without complications Qualified Code(s): B02.9 - Zoster without complications Plan: Lesions almost completely healed, without any residual effects, patient already completed taking her valacyclovir and has not needed to take any gabapentin. (3) Mixed dyslipidemia: Code(s): E78.2 - Mixed hyperlipidemia Plan: Reviewed recent fasting lipid profile with patient with elevated LDL cholesterol. Reinforced adherence to low-cholesterol diet and regular exercise, at least 30 minutes 3 to 4 times a week. Advised patient to make healthy food choices, eat more fruits, vegetables, whole grains, wild caught fish and low-fat dairy. Limit amount of meat and fried or fatty food products, as well as processed foods and fast foods. Orders: Orders Lipid Panel 07/06/24 E78.2 - Mixed hyperlipidemia, B02.9 - Zoster without complications, Z00.01 - Encounter for general adult medical examination with abnormal findings Aspartate Amino Transferase 07/06/24 E78.2 - Mixed hyperlipidemia, B02.9 - Zoster without complications, Z00.01 - Encounter for general adult medical examination with abnormal findings Alanine Aminotransferase 07/06/24 E78.2 - Mixed hyperlipidemia, B02.9 - Zoster without complications, Z00.01 - Encounter for general adult medical examination with abnormal findings Coding Level of Care Code Est Pt Prev Care 40-64y(92563) Diagnoses Annual visit for general adult medical examination with abnormal findings Z00.01 Herpes zoster without complication B02.9 Herpes zoster complications: without complications Mixed dyslipidemia E78.2
[2024-04-08 08:31] VITALS: BP 118/68; PULSE 79; O2SAT 96; BMI 27.2
== END 2024-04-08 09:04 | disposition home or self-care (01) ==
PROVIDERS: PCP Internal Medicine; Visit Provider Internal Medicine
DX: Z00.00 Encounter for general adult medical examination without abnormal findings (principal); B02.9 Zoster without complications; E78.2 Mixed hyperlipidemia
CPT/HCPCS: 99396

== ENCOUNTER 2024-05-15 07:33 | Day surgery (SDC) | payer OTHER, SELFPAY ==
--- NOTE | 2024-05-13 14:42 | P.CONAN_ITS ---
Documented by User: Carmel Paulino NP 05/13/24 14:42 HPI - Anesthesia Eval Consult details Narrative: 49yo F for Colonoscopy PMFSH Active Problems Active Problems: All Active Problems Mixed dyslipidemia (Acute) Herpes zoster (Acute) Diverticulosis of colon (Acute) Sessile colonic polyp (Acute) Otitis media (Acute) Encounter for screening colonoscopy (Acute) Constipation (Acute) Paronychia of finger of right hand (Acute) Past Medical History Medical History (Updated 04/08/24 @ 08:59 by Henny Piña MD) Mixed dyslipidemia Herpes zoster Hx of cervical cancer History of COVID-19 Family History Family History Mother Anxiety Migraine Sister Mental health disorder Father Prostate cancer Paternal Uncle Colon cancer Skin cancer (melanoma) Family history of problems with anesthesia: No Surgical History Surgical History Hx of colonoscopy Hx of hernia repair Hx of section Hx of tonsillectomy History of Problems with Anesthesia: No Social History Social History Household Members Other:: 2 daughters, 1 grandson- Housing: Apartment Patient Tobacco Use Status: Former Tobacco user e-Cigarette/Vaping Use: Never Used Current occupational status: employed Cognitive needs: No Hearing needs: No Vision needs: Yes Meds Allergies Allergy/AdvReac Type Severity Reaction Status Date / Time amoxicillin AdvReac Vomiting Verified 05/15/24 07:49 azithromycin AdvReac Vomiting Verified 05/15/24 07:49 erythromycin base AdvReac Vomiting Verified 05/15/24 07:49 Penicillins AdvReac rash Verified 05/15/24 07:49 Sulfa (Sulfonamide AdvReac Anaphylaxis Verified 05/15/24 07:49 Antibiotics) tetracycline AdvReac Vomiting Verified 05/15/24 07:49 Home Medications ?Medication ?Instructions ?Recorded ?Confirmed ?Last Taken ?Type levonorgestrel 21 mcg/24 hr (up to 1 device intrauterine DIRECTED 07/28/22 10/15/22 Unknown History 8 years) 52 mg intrauterine device (Mirena) loratadine 10 mg tablet (Claritin) 10 mg PO DAILY 07/28/22 10/15/22 Unknown History ivermectin 1 % topical cream 1 appl topical DAILY 10/15/22 10/15/22 Unknown History (Soolantra) Probiotic 1 PO DAILY 05/31/23 Unknown History multivitamin tab 05/31/23 05/31/23 Unknown History omega-3 fatty acids 1 PO DAILY 05/31/23 Unknown History omeprazole 10 mg capsule,delayed 10 mg PO DAILY 04/02/24 Unknown History release B12 500 mcg PO DAILY 05/15/24 05/15/24 Unknown History Assessment and Plan Assessment Anesthesia Assessment: Chart Reviewed Final Anesthetic Review Family History of Problems with Anesthesia: No History of Problems with Anesthesia: No Documented by User: Jeannie Gann MD 05/15/24 08:17 [facility] Past Medical History Medical History (Updated 04/08/24 @ 08:59 by Henny Piña MD) Mixed dyslipidemia Herpes zoster Hx of cervical cancer History of COVID-19 Family History Family History Mother Anxiety Migraine Sister Mental health disorder Father Prostate cancer Paternal Uncle Colon cancer Skin cancer (melanoma) Surgical History Surgical History Hx of colonoscopy Hx of hernia repair Hx of section Hx of tonsillectomy Social History Social History Household Members Other:: 2 daughters, 1 grandson- Housing: Apartment Patient Tobacco Use Status: Former Tobacco user e-Cigarette/Vaping Use: Never Used Current occupational status: employed Cognitive needs: No Hearing needs: No Vision needs: Yes Meds Allergies Allergy/AdvReac Type Severity Reaction Status Date / Time amoxicillin AdvReac Vomiting Verified 05/15/24 07:49 azithromycin AdvReac Vomiting Verified 05/15/24 07:49 erythromycin base AdvReac Vomiting Verified 05/15/24 07:49 Penicillins AdvReac rash Verified 05/15/24 07:49 Sulfa (Sulfonamide AdvReac Anaphylaxis Verified 05/15/24 07:49 Antibiotics) tetracycline AdvReac Vomiting Verified 05/15/24 07:49 Home Medications ?Medication ?Instructions ?Recorded ?Confirmed ?Last Taken ?Type levonorgestrel 21 mcg/24 hr (up to 1 device intrauterine DIRECTED 07/28/22 10/15/22 Unknown History 8 years) 52 mg intrauterine device (Mirena) loratadine 10 mg tablet (Claritin) 10 mg PO DAILY 07/28/22 10/15/22 Unknown History ivermectin 1 % topical cream 1 appl topical DAILY 10/15/22 10/15/22 Unknown History (Soolantra) Probiotic 1 PO DAILY 05/31/23 Unknown History multivitamin tab 05/31/23 05/31/23 Unknown History omega-3 fatty acids 1 PO DAILY 05/31/23 Unknown History omeprazole 10 mg capsule,delayed 10 mg PO DAILY 04/02/24 Unknown History release B12 500 mcg PO DAILY 05/15/24 05/15/24 Unknown History Exam Airway Mallampati Class: II (cap top left lateral) TM Dist: >3cm Neck ROM: Full Heart: rrr Lungs: cta Assessment and Plan Assessment Anesthesia Assessment: Anesthesia Plan Discussed Final Anesthetic Review NPO: Yes ASA Class: II Final Preanesthetic Review: No Changes in Pt Med Stat, Meds/Allgs Chart Reviewed and Consent Obtained/Reviewed Patient Risk: Low Procedure Risk: Low Anesthetic Plan Anesthetic Plan: MAC: Disposition: Standard PACU
--- NOTE | 2024-05-15 07:21 | MHC.SHP ---
Pre-Procedural Eval Section A - 24 Hr Update-Section A only Date of Service: 05/15/24 The patient is an INPATIENT: No The patient has been examined within 24 hours of the surgical procedure. The History & Physical has been completed within 30 days and I have reviewed it.: No Section B - Complete if H&P > 30 days Chief Complaint: Surveillance for colon polyps Relevant Family History (Specify if Yes): Yes Relevant Social History: Tobacco Use (former smoker) Present Medications: see Short Stay Collaborative assessment Medical History: Significant History (hx of COVID 19 infection) History of Previous Operations: Relevant previous surgery/procedure and date(s) (Hx of section Hx of tonsillectomy) Allergies: Allergies Allergy/AdvReac Type Severity Reaction Status Date / Time amoxicillin AdvReac Vomiting Verified 04/08/24 08:39 azithromycin AdvReac Vomiting Verified 04/08/24 08:39 Penicillins AdvReac rash Verified 04/08/24 08:39 Sulfa (Sulfonamide AdvReac Anaphylaxis Verified 04/08/24 08:39 Antibiotics) tetracycline AdvReac Vomiting Verified 04/08/24 08:39 Review of Systems Sugical H&P ROS: Negative: Constitution, Cardiovascular and Gastrointestinal Exam Surgical H&P Exam: Normal: Heart, Normal: Lungs, Normal: Extremities and Normal: Abdomen Plan Diagnosis/Plan: Unchanged I have reviewed the history and physical and performed a pertinent physical examination on my patient. No changes have occurred unless specified. Time Spent With Patient Time: Total time managing care of this patient today ____ minutes.
[2024-05-15 07:45] VITALS: BMI 25.9
[2024-05-15 07:58] LABS: UPreg QC Valid YES; Urine Pregnancy NEGATIVE (NEGATIVE)
[2024-05-15 08:11] VITALS: BP 120/72; PULSE 86; RESP 16; TEMP 36.8; O2SAT 98
[2024-05-15] MEDS: Lactated Ringers 1,000 ML 100 ML IVCONT (08:15)
--- NOTE | 2024-05-15 09:08 | P.OPN-COLO_ITS ---
Colonoscopy Operative Note Operative Note Date of Service: 05/15/24 Narrative: COLONOSCOPY TILL CECUM WITH BIOPSIES, SNARE POLYPECTOMY, AND HEMOCLIP PLACEMENT Pre-op diagnosis: Surveillance for colon polyps. Post-op diagnosis:? Colon polyp, Diverticulosis Endoscopist:? Graeme Vora MD Anesthesia:?MAC Consent: Indications for the procedure and potential complications of bleeding, perforation, reaction to medications and missed diagnosis were discussed with the patient and informed consent was obtained. Instrument: Olympus PCF H 190 L variable stiffness pediatric colonoscope Monitoring: Vital signs and clinical assessment, intermittent blood pressure monitoring, continuous EKG monitoring, Pulse oximetry and Carbon Dioxide monitoring were done throughout the procedure. Please see anesthesia flowsheet. Colon withdrawl time was 15 minutes. Procedure: The patient was placed in the left lateral decubitis position and pre-procedure medications were administered. After a digital rectal examination of the ano-rectum, the video colonoscope was inserted into the rectum and advanced through the colon to the cecum. The colonoscope was slowly withdrawn in a retrograde panoramic fashion and the colon mucosa was carefully examined including a retroflexed view of the rectum. Findings and interventions are described below. Procedure Difficulty: without difficulty Findings: Terminal Ileum: Not evaluated Cecum: A 2-3 mm sessile polyp - removed with a cold snare Ascending Colon: A 10-12 mm sessile polyp overlying a fold in the proximal AC. Polyp was removed with a hot snare and polypectomy site was closed with 1 hemoclip. Past polypectomy site visualized at 75 cms without residual polyp. A 3-4 mm sessile polyp adjacent to the polypectomy site - removed with a cold snare Transverse Colon: Normal Descending Colon: Moderate diverticulosis Sigmoid Colon: Severe diverticulosis Rectum: A 3-4 mm diminutive appearing polyp - removed with a cold biopsy Ano-rectum: Normal Colon preparation: Excellent, after some irrigation. [place] Bowel Preparation Scale Right colon; 3 Transverse colon: 3 Left colon; 3 (0 = Unprepared colon segment with mucosa not seen due to solid stool that cannot be cleared. 1 = Portion of mucosa of the colon segment seen, but other areas of the colon segment not well seen due to staining, residual stool and/or opaque liquid. 2 = Minor amount of residual staining, small fragments of stool and/or opaque liquid, but mucosa of colon segment seen well. 3 = Entire mucosa of colon segment seen well with no residual staining, small fragments of stool or opaque liquid) Impression and Post Procedure Diagnosis: Colonoscopy Findings: Three small and one medium sized polyps were removed Moderate to severe diverticulosis seen in the left colon Plan: Pt has a FU appointment on 05/28/[address] Vora Repeat Colonoscopy in 3-5 years if polyps are adenomatous and 10 year if polyps are hyperplastic. Above findings were reviewed with the patient and relevant handouts were given and the discharge area.
[2024-05-15 09:12] VITALS: BP 102/63; PULSE 78; RESP 16; TEMP 36.4; O2SAT 94
[2024-05-15 09:27] VITALS: BP 114/73; PULSE 69; RESP 18; TEMP 36.9; O2SAT 100
== END 2024-05-15 10:00 | disposition home or self-care (01) ==
PROVIDERS: Anesthesiology; PCP Internal Medicine; Visit Provider Internal Medicine Gastroenterology
PROC: 0DJD8ZZ Inspection of Lower Intestinal Tract, Via Natural or Artificial Opening Endoscopic (ICD-10-PCS; CPT 45378; principal; 2024-05-15 08:30)
DX: Z12.11 Encounter for screening for malignant neoplasm of colon (principal); D12.2 Benign neoplasm of ascending colon; K62.1 Rectal polyp; K57.30 Diverticulosis of large intestine without perforation or abscess without bleeding; Z86.010 Personal history of colon polyps; E78.2 Mixed hyperlipidemia; Z85.41 Personal history of malignant neoplasm of cervix uteri; Z87.891 Personal history of nicotine dependence
CPT/HCPCS: 45385; 45380; 81025; 88305; J2704

== ENCOUNTER → 2024-05-15 07:33 | Outpatient (BNV) | payer OTHER, SELFPAY | PROVIDERS: PCP Internal Medicine; Visit Provider Internal Medicine Gastroenterology | DX: Z12.11 Encounter for screening for malignant neoplasm of colon (principal); Z86.010 Personal history of colon polyps; K63.5 Polyp of colon; K62.1 Rectal polyp; K57.90 Diverticulosis of intestine, part unspecified, without perforation or abscess without bleeding | CPT/HCPCS: 45380; 45385 ==

== ENCOUNTER 2024-05-28 08:48 | Outpatient (AMB) | payer OTHER, SELFPAY ==
--- NOTE | 2024-05-28 08:52 | MHC.OFFVIS ---
Vital Signs 05/28/24 08:54 Height 5 ft 1 in Weight 140 lb BMI 26.4 BP 115/74 Blood Pressure Location Lt brachial Position Sitting Pulse 80 Intake Visit Reasons: s/p colon Intake Note: Patient follow up for diverticulosis and Colonoscopy results. Patient cc: anxious de his brother is in the hospital, BM not daily between diarrhea and constipation, acid reflex with burning sensation. Mortgage Consultant Required: No Accompanied by: Self / Same As Patient Allergies amoxicillin Adverse Reaction (Verified 05/28/24 08:51) Vomiting azithromycin Adverse Reaction (Verified 05/28/24 08:51) Vomiting erythromycin base Adverse Reaction (Verified 05/28/24 08:51) Vomiting Penicillins Adverse Reaction (Verified 05/28/24 08:51) rash Sulfa (Sulfonamide Antibiotics) Adverse Reaction (Verified 05/28/24 08:51) Anaphylaxis tetracycline Adverse Reaction (Verified 05/28/24 08:51) Vomiting Medication List - Last Reconciled 05/28/24 by Graeme Vora MD [B12 500 mcg PO DAILY] ivermectin 1% (Soolantra) 1 appl topical DAILY levonorgestrel (Mirena) 1 device intrauterine DIRECTED loratadine (Claritin) 10 mg PO DAILY multivitamin tabs omega-3 fatty acids 1 PO DAILY omeprazole 10 mg PO DAILY [Probiotic 1 PO DAILY] valacyclovir 1,000 mg PO Q8H 7 days HPI HPI s/p colon: Details: GI clinic visit for this 49 year old female with hyperlipidemia and history of cervical cancer for FU of colon polyps to discuss colonoscopy results [facility] Reviewed IMAGING STUDIES: No recent GI imaging studies ENDOSCOPIC STUDIES: 05/15/24 COLONOSCOPY SHOWED: Colonoscopy Findings: Three small and one medium sized polyps were removed Moderate to severe diverticulosis seen in the left colon Plan: Repeat Colonoscopy in 3-5 years if polyps are adenomatous and 10 year if polyps are hyperplastic. BIOPSIES SHOWED: A. Colon, ascending, polypectomy: Colonic mucosa with mild surface hyperplastic changes. B. Cecum, polypectomy: Food/vegetable material only; no colonic tissue identified. C. Colon, proximal ascending, polypectomy: Fragments of sessile serrated lesion/polyp; negative for cytologic dysplasia. D. Rectum, polypectomy: Hyperplastic mucosal polyp TODAY'S VISIT: Pt reports bad heartburn and has been on Omeprazole x 5 yrs. Tried famotidine which did not work. Patient denies symptoms of dysphagia, nausea, vomiting, change in appetite or weight. Has a BM 1-2 times a week. Goes the whole day and can have diarrhea. Has fibre pills and forgets to take them. Patient denies known family history of colon polyps, colon cancer or other GI malignancies. Brother is at [facility] with aspiration pneumonia due to PEG (crippled due to multiple strokes after he had a brain tumor removed complicated by a subdural hematoma) [facility] Medical History (Updated 05/28/24 @ 13:35 by Graeme Vora MD) Mixed dyslipidemia Herpes zoster Hx of cervical cancer History of COVID-19 Surgical History Hx of colonoscopy Hx of hernia repair Hx of section Hx of tonsillectomy Family History Mother Anxiety Migraine Sister Mental health disorder Father Prostate cancer Paternal Uncle Colon cancer Skin cancer (melanoma) Social History Household Members Other:: 2 daughters, 1 grandson- Housing: Apartment Patient Tobacco Use Status: Former Tobacco user e-Cigarette/Vaping Use: Never Used Current occupational status: employed Cognitive needs: No Hearing needs: No Vision needs: Yes Review of Systems Const All systems reviewed & are unremarkable except as noted in HPI and below Physical Exam Vital Signs: Last Vital Signs Pulse 80 05/28/24 08:54 BP 115/74 05/28/24 08:54 BMI result Body Mass Index 26.4 Const General: healthy appearing and no acute distress Nutritional Appearance: average body habitus Orientation/consciousness: patient oriented x3 Limitations: no limitations HEENT Head: Yes normal to inspection Ears: hearing grossly normal bilaterally Eyes Sclerae: sclerae normal Pupils: Equal, round and reactive pupils present Neck Neck: Yes normal visual inspection Chest Chest palpation & inspection: normal inspection of the chest Resp Effort & Inspection: normal respiratory effort Auscultation: clear to auscultation bilaterally Cardio Palpation: normal PMI Rate: regular rate Rhythm: regular rhythm Heart sounds: S1 normal heart sound present, S2 normal heart sound present and no murmurs GI Palpation (GI): Soft to palpation, nontender and No hepatosplenomegaly present Auscultation: normal bowel sounds Rectal Exam - Female: deferred Skin General skin exam: no rashes or lesions noted Neuro General: patient oriented x3, gait normal and moves all extremities Cranial nerves: Yes Equal, round and reactive pupils present Psych Appearance: grossly normal Mental Status: mental status grossly normal Assessment & Plan Assessment & Plan (1) Sessile colonic polyp: Comment: 05/2024 Three small and one medium sized polyps were removed during colonoscopy Moderate to severe diverticulosis seen in the left colon Plan: Repeat Colonoscopy advised in 3 since biopsies from the medium sized polyps showed sessile serrated lesion Code(s): K63.5 - Polyp of colon Category: Medical (2) Constipation: Code(s): K59.00 - Constipation, unspecified Category: Medical (3) GERD (gastroesophageal reflux disease): Code(s): K21.9 - Gastro-esophageal reflux disease without esophagitis Category: Medical Plan 49 year old female with hyperlipidemia and history of cervical cancer followed in GI for GERD, constipation and colon polyps Pt advised to continue Omeprazole 20 mg daily and take Senna prn for constipation Pt had requested to add an EGD to her last colon appt which was not approved by her insurance. She is requesting to have an EGD (for FU of GERD) with her next colon FU in 1 year Medications: New omeprazole 20 mg PO DAILY 90 days 90 tabs 1RF NS Coding Level of Care Code Est Pt Level 4 (54490) Diagnoses Sessile colonic polyp K63.5 Constipation K59.00 GERD (gastroesophageal reflux disease) K21.9 Time Spent (min) 23
[2024-05-28 08:54] VITALS: BP 115/74; PULSE 80; BMI 26.4
== END 2024-05-28 09:24 | disposition home or self-care (01) ==
PROVIDERS: PCP Internal Medicine; Visit Provider Internal Medicine Gastroenterology
DX: K63.5 Polyp of colon (principal); K59.00 Constipation, unspecified; K21.9 Gastro-esophageal reflux disease without esophagitis
CPT/HCPCS: 99214

== ENCOUNTER → 2024-05-28 08:48 | Outpatient (BNVA) | payer OTHER, SELFPAY | PROVIDERS: PCP Internal Medicine; Visit Provider Internal Medicine Gastroenterology ==

== ENCOUNTER 2024-06-29 08:09 | Outpatient (AMB) | payer OTHER, SELFPAY ==
--- NOTE | 2024-06-29 08:14 | AM.OFFWIN_ITS ---
Intake Vital Signs 06/29/24 08:15 Height 5 ft 1 in Weight 145 lb BMI 27.4 BP 102/70 Blood Pressure Location Lt brachial Position Sitting Pulse 94 Pulse Source Pulse Oximeter Temp 98.6 F Temp Source Oral Pulse Oximetry (%) 98 Oxygen Delivery Method Room Air Intake Visit Reasons: EP- coughing, sore throat Intake Note: pt c/o sore throat, non productive cough. Started Saturday last week Patient Tobacco Use Status: Former Tobacco user Allergies amoxicillin Adverse Reaction (Verified 06/29/24 08:24) Vomiting azithromycin Adverse Reaction (Verified 06/29/24 08:24) Vomiting erythromycin base Adverse Reaction (Verified 06/29/24 08:24) Vomiting Penicillins Adverse Reaction (Verified 06/29/24 08:24) rash Sulfa (Sulfonamide Antibiotics) Adverse Reaction (Verified 06/29/24 08:24) Anaphylaxis tetracycline Adverse Reaction (Verified 06/29/24 08:24) Vomiting Do you need a note to return to daycare/school/sports/work: Yes HPI EP- coughing, sore throat HPI Details This note is constructed using voice recognition software. While every effort has been made to ensure accuracy, automotive design drafter errors may have been included. The patient is a 49 year old female who presents to the clinic today with itchy throat and cough for the past 1 week. She notes that she started with itchy throat, which she describes as not painful. She has had a low grade fever which has resolved. She has some mild sinus congestion, and cough that seems not to improve despite cough syrup. The cough is keeping her up at night, making it hard to tell if her energy level is impacted by illness or lack of sleep. She otherwise feels well, and has been able to work through her illness. She has tested three times for covid at home, all negative. She wants to make sure if she is safe to visit her mother in law at the [facility]. [facility] Medical History (Updated 05/28/24 @ 13:35 by Graeme Vora MD) Mixed dyslipidemia Herpes zoster Hx of cervical cancer History of COVID-19 Surgical History Hx of colonoscopy Hx of hernia repair Hx of section Hx of tonsillectomy Family History Mother Anxiety Migraine Sister Mental health disorder Father Prostate cancer Paternal Uncle Colon cancer Skin cancer (melanoma) Social History Household Members Other:: 2 daughters, 1 grandson- Housing: Apartment Patient Tobacco Use Status: Former Tobacco user e-Cigarette/Vaping Use: Never Used Current occupational status: employed Cognitive needs: No Hearing needs: No Vision needs: Yes Review of Systems Const All systems reviewed & are unremarkable except as noted in HPI and below Physical Exam Vital Signs: Last Vital Signs Temp 98.6 F 06/29/24 08:15 Pulse 94 06/29/24 08:15 BP 102/70 06/29/24 08:15 Pulse Ox 98 06/29/24 08:15 Oxygen Delivery Method Room Air 06/29/24 08:15 BMI result Body Mass Index 27.4 Const General: cooperative, healthy appearing, comfortable and no acute distress Orientation/consciousness: patient oriented x3 Limitations: no limitations HEENT Head: Yes normal to inspection Ears: hearing grossly normal bilaterally, external ears normal and TM abnormal retracted General nose exam: Normal external nose present, No nasal discharge present and Abnormal mucous membranes and turbinates present boggy and pale Face and sinus: Yes normal facial exam and Yes sinuses nontender Mouth: Normal oral and palatal mucosa present and moist mucous membranes Throat: Yes tonsils normal, Yes uvula midline, Yes posterior oropharynx abnormal (Erythema) and Yes postnasal drainage Eyes General: appearance normal, both eyes and all related structures Neck Neck: Yes normal visual inspection Resp Effort & Inspection: normal respiratory effort, able to speak in complete sentences, Actively coughing, no respiratory distress, not tachypneic, no tripod positioning and no use of accessory muscles Auscultation: clear to auscultation bilaterally Cardio Rate: regular rate Rhythm: regular rhythm Heart sounds: normal S1 and S2 Skin General skin exam: no rashes or lesions noted Neuro General: patient oriented x3 Extrem General: Yes normal to inspection and Yes no clubbing, cyanosis or edema Results AMB Rapid Strep AMB Rapid Strep Negative Last Edit by Nain Duarte CMA on 06/29/24 08:34 Results Reviewed Results Reviewed: Laboratory Last Values Strep Scn Rapid Clinic Negative 06/29/24 08:33 Assessment & Plan Assessment & Plan (1) URI (upper respiratory infection): Code(s): J06.9 - Acute upper respiratory infection, unspecified Qualifiers: URI type: unspecified URI Qualified Code(s): J06.9 - Acute upper respiratory infection, unspecified Plan: Viral swab obtained to rule out Covid based on symptoms. Advised mask wearing while symptomatic and quarantine per current CDC guidelines. Reviewed at home support methods including hydration, humidification, vix vapor rub, sinus rinse. Advised follow up with worsening symptoms such as dyspnea at rest, which would require emergent evaluation. Prescription for cough suppressant provided for symptomatic management. Plan See above for full details and plan. Orders: Orders AMB Rapid Strep Screen Today Z13.9 - Encounter for screening, unspecified SARS-CoV2/FLU/RSV Today J06.9 - Acute upper respiratory infection, unspecified Medications: New benzonatate 100 mg PO TID 5 days PRN 15 caps 0RF cough Coding Level of Care Code Est Pt Level 3 (13431) Diagnoses Upper respiratory tract infection, unspecified type J06.9 URI type: unspecified URI
[2024-06-29 08:15] VITALS: BP 102/70; PULSE 94; TEMP 37; O2SAT 98; BMI 27.4
== END 2024-06-29 08:53 | disposition home or self-care (01) ==
PROVIDERS: PCP Internal Medicine; Visit Provider Registered Nurse
DX: J06.9 Acute upper respiratory infection, unspecified (principal); Z13.9 Encounter for screening, unspecified
CPT/HCPCS: 87880; 99213

== ENCOUNTER 2024-06-29 08:40 | Outpatient (REF) | payer OTHER, SELFPAY ==
[2024-06-29 11:07] LABS: Influenza A PCR NEGATIVE (Negative); Influenza B PCR NEGATIVE (Negative); Resp Syncy Virus RNA Qual PCR NEGATIVE (Negative); SARS COV2 PCR INHOUSE NEGATIVE (Negative)
== END 2024-06-29 08:41 | disposition home or self-care (01) ==
LOC: HO.LNP 08:40
PROVIDERS: Visit Provider Registered Nurse
DX: J06.9 Acute upper respiratory infection, unspecified (principal)
CPT/HCPCS: 0241U

== ENCOUNTER 2024-07-16 08:00 | Outpatient (AMB) | payer OTHER, SELFPAY ==
[2024-07-16 08:12] VITALS: BP 130/84; PULSE 76; TEMP 36.7; O2SAT 98; BMI 27.2
--- NOTE | 2024-07-16 08:12 | AM.OFFWIN_ITS ---
Intake Vital Signs 07/16/24 08:12 Height 5 ft 1 in Weight 144 lb BMI 27.2 BP 130/84 Blood Pressure Location Lt brachial Position Sitting Pulse 76 Pulse Source Pulse Oximeter Temp 98.1 F Temp Source Oral Pulse Oximetry (%) 98 Oxygen Delivery Method Room Air Intake Visit Reasons: EP Cough 3+ weeks Intake Note: Patient here for cough that has been present since and was seen here. All the recommendations have not worked. Patient Tobacco Use Status: Former Tobacco user Allergies amoxicillin Adverse Reaction (Verified 07/16/24 08:16) Vomiting azithromycin Adverse Reaction (Verified 07/16/24 08:16) Vomiting erythromycin base Adverse Reaction (Verified 07/16/24 08:16) Vomiting Penicillins Adverse Reaction (Verified 07/16/24 08:16) rash Sulfa (Sulfonamide Antibiotics) Adverse Reaction (Verified 07/16/24 08:16) Anaphylaxis tetracycline Adverse Reaction (Verified 07/16/24 08:16) Vomiting Do you need a note to return to daycare/school/sports/work: No HPI HPI Comments History of Present Illness Details 49 y/o female patient who presents to [facility] walk in clinic with c/o Persitent cough for 3 weeks. She was seen here 06/29 for similar symptoms and prescribed cough medicine and SARs negative. Pt was seen recently again in an Emergency room in [place], chest Xray was negative. She was prescribed Doxy for 7 days and she completed the course. Reports nothing has worked for her. Denies fevers, chills, nausea or vomiting. [facility] Medical History (Updated 05/28/24 @ 13:35 by Graeme Vora MD) Mixed dyslipidemia Herpes zoster Hx of cervical cancer History of COVID-19 Surgical History Hx of colonoscopy Hx of hernia repair Hx of section Hx of tonsillectomy Family History Mother Anxiety Migraine Sister Mental health disorder Father Prostate cancer Paternal Uncle Colon cancer Skin cancer (melanoma) Social History Household Members Other:: 2 daughters, 1 grandson- Housing: Apartment Patient Tobacco Use Status: Former Tobacco user e-Cigarette/Vaping Use: Never Used Current occupational status: employed Cognitive needs: No Hearing needs: No Vision needs: Yes Review of Systems Const All systems reviewed & are unremarkable except as noted in HPI and below Physical Exam Vital Signs: Last Vital Signs Temp 98.1 F 07/16/24 08:12 Pulse 76 07/16/24 08:12 BP 130/84 07/16/24 08:12 Pulse Ox 98 07/16/24 08:12 Oxygen Delivery Method Room Air 07/16/24 08:12 BMI result Body Mass Index 27.2 Const General: cooperative and no acute distress Orientation/consciousness: patient oriented x3 Resp Effort & Inspection: normal respiratory effort, able to speak in complete sentences and Actively coughing Auscultation: clear to auscultation bilaterally, no crackles, no rales, no rhonchi and no wheezes Cardio Heart sounds: S1 normal heart sound present and S2 normal heart sound present Neuro General: patient oriented x3, gait normal and moves all extremities Psych Speech and movement: Normal speech and movement present Assessment & Plan Assessment & Plan (1) Cough in adult: Code(s): R05.9 - Cough, unspecified Plan: Recent SARs was negative, but will repeat today Recent Chest Xray negative Claritin BID Ordered Prednisone x 5 days Ordered cough syrup OTC cough remedies. Orders: Orders SARS-CoV2/FLU/RSV Today J06.9 - Acute upper respiratory infection, unspecified Medications: New acetaminophen-codeine 120-12 mg/5 mL 5 mL PO Q8H 473 mL 0RF R05.9 - Cough, unspecified prednisone 50 mg PO DAILY 5 days 5 tabs 0RF R05.9 - Cough, unspecified Coding Level of Care Code Est Pt Level 3 (15471) Diagnoses Cough in adult R05.9 Time Spent (min) 15
== END 2024-07-16 08:43 | disposition home or self-care (01) ==
PROVIDERS: PCP Internal Medicine; Visit Provider Nurse Practitioner Family
DX: R05.9 Cough, unspecified (principal)
CPT/HCPCS: 99213

== ENCOUNTER 2024-07-16 08:21 | Outpatient (REF) | payer OTHER, SELFPAY ==
[2024-07-16 11:02] LABS: Influenza A PCR NEGATIVE (Negative); Influenza B PCR NEGATIVE (Negative); Resp Syncy Virus RNA Qual PCR NEGATIVE (Negative); SARS COV2 PCR INHOUSE NEGATIVE (Negative)
== END 2024-07-16 08:22 | disposition home or self-care (01) ==
LOC: HO.LAB 08:21
PROVIDERS: Visit Provider Nurse Practitioner Family
DX: J06.9 Acute upper respiratory infection, unspecified (principal)
CPT/HCPCS: 0241U

== ENCOUNTER 2024-07-21 07:38 | Outpatient (REF) | payer OTHER, SELFPAY ==
[2024-07-21 10:53] LABS: Alanine Aminotransferase 26 U/L (0-31); Aspartate Amino Transferase 16 U/L (5-31); Cholesterol 278 mg/dL (<200); HDL Cholesterol 46 mg/dL (>40); LDL Cholesterol Calculated 175 mg/dL (<100); Triglycerides 288 mg/dL (<150)
== END 2024-07-21 07:39 | disposition home or self-care (01) ==
LOC: HO.HMGCLDS 07:38
PROVIDERS: PCP Internal Medicine; Visit Provider Internal Medicine
DX: Z00.01 Encounter for general adult medical examination with abnormal findings (principal); E78.2 Mixed hyperlipidemia; B02.9 Zoster without complications
CPT/HCPCS: 36415; 80061; 84450; 84460

== ENCOUNTER 2024-08-03 08:05 | Outpatient (AMB) | payer OTHER, SELFPAY ==
[2024-08-03 08:18] VITALS: BP 128/80; PULSE 79; TEMP 37.1; O2SAT 98; BMI 27.2
--- NOTE | 2024-08-03 08:18 | MHC.OFFWIV ---
Intake Vital Signs 08/03/24 08:18 Height 5 ft 1 in Weight 144 lb BMI 27.2 BP 128/80 Blood Pressure Location Rt brachial Position Sitting Pulse 79 Pulse Source Pulse Oximeter Temp 98.8 F Temp Source Oral Pulse Oximetry (%) 98 Intake Visit Reasons: EP-cough Intake Note: pt is here for cough, ongoing since june Patient Tobacco Use Status: Former Tobacco user Allergies amoxicillin Adverse Reaction (Verified 08/03/24 08:18) Vomiting azithromycin Adverse Reaction (Verified 08/03/24 08:18) Vomiting erythromycin base Adverse Reaction (Verified 08/03/24 08:18) Vomiting Penicillins Adverse Reaction (Verified 08/03/24 08:18) rash Sulfa (Sulfonamide Antibiotics) Adverse Reaction (Verified 08/03/24 08:18) Anaphylaxis tetracycline Adverse Reaction (Verified 08/03/24 08:18) Vomiting Do you need a note to return to daycare/school/sports/work: No HPI EP-cough HPI Details This note is constructed using voice recognition software. While every effort has been made to ensure accuracy, electric system operator errors may have been included. The patient is a 49 year old female who presents to the clinic today with cough for the past > 1 month. She was seen here for URI, and tested negative for COVID. Her symptoms did not improve, so she was seen in the emergency room, where she had a chest x-ray done, which was negative, and then she was started on doxycycline. She was then again seen here as the cough continued, and prescribed a prednisone burst with an albuterol inhaler. She denies fever, chills, dyspnea at rest, sinus congestion. She notes that the cough feels like a tickle, and is dry, nothing is coming. The cough is fairly persistent. She has not been using for 2 separate events as a friend had had advised her that she could get thrush with the use of inhalers. She did not want to get thrush so followed her friends advised. [facility] Medical History (Updated 05/28/24 @ 13:35 by Graeme Vora MD) Mixed dyslipidemia Herpes zoster Hx of cervical cancer History of COVID-19 Surgical History Hx of colonoscopy Hx of hernia repair Hx of section Hx of tonsillectomy Family History Mother Anxiety Migraine Sister Mental health disorder Father Prostate cancer Paternal Uncle Colon cancer Skin cancer (melanoma) Social History Household Members Other:: 2 daughters, 1 grandson- Housing: Apartment Patient Tobacco Use Status: Former Tobacco user e-Cigarette/Vaping Use: Never Used Current occupational status: employed Cognitive needs: No Hearing needs: No Vision needs: Yes Review of Systems Const All systems reviewed & are unremarkable except as noted in HPI and below Physical Exam Vital Signs: Last Vital Signs Temp 98.8 F 08/03/24 08:18 Pulse 79 08/03/24 08:18 BP 128/80 08/03/24 08:18 Pulse Ox 98 08/03/24 08:18 BMI result Body Mass Index 27.2 Const General: cooperative, healthy appearing, comfortable and no acute distress Orientation/consciousness: patient oriented x3 Limitations: no limitations HEENT Head: Yes normal to inspection Ears: hearing grossly normal bilaterally, external ears normal and TM abnormal retracted General nose exam: Normal external nose present, No nasal discharge present and Abnormal mucous membranes and turbinates present boggy and pale Face and sinus: Yes normal facial exam and Yes sinuses nontender Mouth: Normal oral and palatal mucosa present and moist mucous membranes Throat: Yes tonsils normal, Yes uvula midline, Yes posterior oropharynx abnormal (Erythema), Yes postnasal drainage and Yes cobblestoning Eyes General: appearance normal, both eyes and all related structures Neck Neck: Yes normal visual inspection Resp Effort & Inspection: normal respiratory effort, able to speak in complete sentences, Actively coughing, no respiratory distress, not tachypneic, no tripod positioning and no use of accessory muscles Auscultation: clear to auscultation bilaterally and wheezes (Which clear with cough) Cardio Rate: regular rate Rhythm: regular rhythm Heart sounds: normal S1 and S2 Skin General skin exam: no rashes or lesions noted Neuro General: patient oriented x3 Extrem General: Yes normal to inspection and Yes no clubbing, cyanosis or edema Results Reviewed Results Reviewed: XR images contemporaneously read by me with findings appear normal. Assessment & Plan Assessment & Plan (1) Cough: Code(s): R05.9 - Cough, unspecified Qualifiers: Cough type: subacute Qualified Code(s): R05.2 - Subacute cough Plan: Likely contributed to by allergies. Advised use of albuterol use to help with symptoms. Chest x-ray repeated today to rule out any additional contributing factors. Advised follow up with primary care provider as needed. Additionally we will try a prednisone taper for longer treatment of symptoms. (2) Allergic rhinitis: Code(s): J30.9 - Allergic rhinitis, unspecified Qualifiers: Allergic rhinitis seasonality: unspecified Allergic rhinitis trigger: unspecified Qualified Code(s): J30.9 - Allergic rhinitis, unspecified Plan: Likely contributing to cough. Supportive measures encouraged and reviewed. Advised patient to try a Flonase nasal spray and second-generation antihistamine such as Zyrtec, Claritin, Keyana or similar. Advised consideration of sinus rinse if needed. Advised patient to follow up with primary care provider with worsening or failure to resolve. Plan See above for full details and plan. Orders: Orders XR chest 2V Today R05.9 - Cough, unspecified Medications: New prednisone 5 tablets daily for 2 days, then 4 tablets daily for 2 days, then 3 tablets daily for 2 days, then 2 tablets daily for 2 days, then 1 tablet daily for 2 days. 10 mg PO DIRECTED 30 tabs 0RF Coding Level of Care Code Est Pt Level 4 (92333) Diagnoses Subacute cough R05.2 Cough type: subacute Allergic rhinitis, unspecified seasonality, unspecified trigger J30.9 Allergic rhinitis seasonality: unspecified Allergic rhinitis trigger: unspecified
== END 2024-08-03 09:22 | disposition home or self-care (01) ==
PROVIDERS: PCP Internal Medicine; Visit Provider Registered Nurse
DX: R05.2 Subacute cough (principal); J30.9 Allergic rhinitis, unspecified

== ENCOUNTER → 2024-08-03 08:05 | Outpatient (BNVA) | payer OTHER, SELFPAY | PROVIDERS: PCP Internal Medicine ==

== ENCOUNTER 2024-08-03 08:45 | Outpatient (REF) | payer OTHER, SELFPAY ==
--- NOTE | ~2024-08-03 | XR_ITS ---
EXAMINATION: XR CHEST CLINICAL INFORMATION: Cough. COMPARISON: None available. TECHNIQUE: 2 views of the chest were obtained. FINDINGS: The lungs are well expanded. There is patchy airspace disease in the medial right lower lobe possibly representing pneumonia. No pleural effusion. Cardiac silhouette is within normal limits. XR/XR chest 2V IMPRESSION: Possible right lower lobe pneumonia. Follow-up until resolution is advised. Electronically signed by: Jesus García MD 08/03/2024 09:35 AM EDT
== END 2024-08-03 08:46 | disposition home or self-care (01) ==
LOC: HO.HMGCX 08:45
PROVIDERS: PCP Internal Medicine; Visit Provider Registered Nurse
DX: R05.2 Subacute cough (principal); J30.9 Allergic rhinitis, unspecified
CPT/HCPCS: 71046

== ENCOUNTER → 2024-08-06 08:40 | Outpatient (BNVA) | payer OTHER, SELFPAY | PROVIDERS: PCP Internal Medicine ==

== ENCOUNTER 2024-08-21 08:02 | Outpatient (REF) | payer OTHER, SELFPAY ==
[2024-08-21 12:23] LABS: Influenza A PCR NEGATIVE (Negative); Influenza B PCR NEGATIVE (Negative); Resp Syncy Virus RNA Qual PCR NEGATIVE (Negative); SARS COV2 PCR INHOUSE POSITIVE (Negative)
== END 2024-08-21 08:03 | disposition home or self-care (01) ==
LOC: HO.LAB 08:02
PROVIDERS: Nurse Practitioner Family; PCP Internal Medicine
DX: J06.9 Acute upper respiratory infection, unspecified (principal)
CPT/HCPCS: 0241U

== ENCOUNTER 2024-08-21 08:02 | Outpatient (AMB) | payer OTHER, SELFPAY ==
--- NOTE | 2024-08-21 08:05 | AM.OFFWIN_ITS ---
Intake Vital Signs 08/21/24 08:06 Height 5 ft 1 in Weight 148 lb BMI 28.0 BP 118/76 Blood Pressure Location Rt brachial Position Sitting Pulse 85 Pulse Source Pulse Oximeter Pulse Oximetry (%) 99 Oxygen Delivery Method Room Air Intake Visit Reasons: EP Sinus congestion, cough Intake Note: Patient here for cough that has been present since end of june. Patient Tobacco Use Status: Former Tobacco user Allergies fluticasone [From Flonase] Adverse Reaction (Severe, Verified 08/21/24 08:10) eyes burning amoxicillin Adverse Reaction (Verified 08/21/24 08:09) Vomiting Penicillins Adverse Reaction (Verified 08/21/24 08:09) rash Sulfa (Sulfonamide Antibiotics) Adverse Reaction (Verified 08/21/24 08:09) Anaphylaxis Do you need a note to return to daycare/school/sports/work: No HPI HPI Comments History of Present Illness Details 49 y/o female patient who presents to [facility] walk in clinic with c/o persistent cough since June. She was seen at ED in [place] where she was treated with Doxy, and chest Xray was negative then. She returned to our Walk in clinic 07/16/24 for similar symptoms and was prescribed Prednisone and Claritin with no relief. She returned yet again 08/03/24 to [facility] clinic where Chest Xray was positive for Pneumonia and SARs was negative for COVID 19 infection. She was given Levo 750 mg with no symptom relief. Today returns to [facility] clinic with similar symptoms and no relief despite the Abx. Ordered Chest Xray and repeated SARs. [facility] Medical History (Updated 08/21/24 @ 08:29 by Amy Clement NP) URI, acute Mixed dyslipidemia Herpes zoster Hx of cervical cancer History of COVID-19 Surgical History Hx of colonoscopy Hx of hernia repair Hx of section Hx of tonsillectomy Family History Mother Anxiety Migraine Sister Mental health disorder Father Prostate cancer Paternal Uncle Colon cancer Skin cancer (melanoma) Social History Household Members Other:: 2 daughters, 1 grandson- Housing: Apartment Patient Tobacco Use Status: Former Tobacco user e-Cigarette/Vaping Use: Never Used Current occupational status: employed Cognitive needs: No Hearing needs: No Vision needs: Yes Review of Systems Const All systems reviewed & are unremarkable except as noted in HPI and below Physical Exam Vital Signs: Last Vital Signs Pulse 85 08/21/24 08:06 BP 118/76 08/21/24 08:06 Pulse Ox 99 08/21/24 08:06 Oxygen Delivery Method Room Air 08/21/24 08:06 BMI result Body Mass Index 28.0 Const General: cooperative and no acute distress Orientation/consciousness: patient oriented x3 HEENT Head: Yes normocephalic Ears: external ears normal General nose exam: Normal external nose present Face and sinus: Yes sinuses nontender Mouth: moist mucous membranes Throat: Yes postnasal drainage Resp Effort & Inspection: normal respiratory effort, no audible wheezes and Actively coughing Auscultation: clear to auscultation bilaterally, no crackles, no rales, no rhonchi and no wheezes Cardio Heart sounds: S1 normal heart sound present and S2 normal heart sound present Neuro General: patient oriented x3, gait normal and moves all extremities Psych Speech and movement: Normal speech and movement present Assessment & Plan Assessment & Plan (1) Cough in adult: Code(s): R05.9 - Cough, unspecified Plan: Ordered Chest Xray to see any pneumonia resolution Could possibly be Viral Pneumonia vs Bacterial Ordered SARs today. Ordered Azithromycin and Benzonatate. Orders: Orders XR chest 2V Today R05.9 - Cough, unspecified SARS-CoV2/FLU/RSV Today J06.9 - Acute upper respiratory infection, unspecified Medications: New azithromycin 500 mg PO DAILY 3 days 3 tabs 0RF R05.9 - Cough, unspecified benzonatate 100 mg PO TID 90 caps 0RF R05.9 - Cough, unspecified Coding Level of Care Code Est Pt Level 4 (93794) Diagnoses Cough in adult R05.9 Time Spent (min) 20 Comment Spent on examination and reviewing Chest Xray images.
[2024-08-21 08:06] VITALS: BP 118/76; PULSE 85; O2SAT 99; BMI 28.0
== END 2024-08-21 09:28 | disposition home or self-care (01) ==
PROVIDERS: PCP Internal Medicine; Visit Provider Nurse Practitioner Family
DX: R05.9 Cough, unspecified (principal)

== ENCOUNTER 2024-08-21 08:25 | Outpatient (REF) | payer OTHER, SELFPAY ==
--- NOTE | ~2024-08-21 | XR_ITS ---
EXAMINATION: XR CHEST CLINICAL INFORMATION: Persistent cough COMPARISON: Chest radiograph 08/03/2024 TECHNIQUE: 2 views of the chest were obtained. FINDINGS: The lungs are adequately expanded. Interval resolution of previously noted patchy opacities in the medial right lower lung. No focal consolidation. No pleural effusions or pneumothorax. The cardiac mediastinal silhouette is within normal limits. No acute osseous abnormality. XR/XR chest 2V IMPRESSION: No acute pulmonary disease. Electronically signed by: Yuriy Rich MD 08/21/2024 10:21 AM EDT
== END 2024-08-21 08:26 | disposition home or self-care (01) ==
LOC: HO.HMGCLDS 08:25
PROVIDERS: PCP Internal Medicine; Visit Provider Nurse Practitioner Family
DX: R05.9 Cough, unspecified (principal)
CPT/HCPCS: 71046

== ENCOUNTER 2024-10-07 07:34 | Outpatient (REF) | payer OTHER, SELFPAY ==
[2024-10-07 10:43] LABS: Alanine Aminotransferase 41 U/L (0-31); Aspartate Amino Transferase 34 U/L (5-31); Cholesterol 272 mg/dL (<200); HDL Cholesterol 34 mg/dL (>40); Triglycerides 528 mg/dL (<150)
== END 2024-10-07 07:35 | disposition home or self-care (01) ==
LOC: HO.HMGCLDS 07:34
PROVIDERS: PCP Internal Medicine; Visit Provider Internal Medicine
DX: E78.2 Mixed hyperlipidemia (principal)
CPT/HCPCS: 36415; 80061; 84450; 84460

== ENCOUNTER 2024-10-16 08:09 | Outpatient (AMB) | payer OTHER, SELFPAY ==
--- NOTE | 2024-10-16 08:12 | A.OFFPC_ITS ---
Intake Visit Reasons: Labs results Allergies fluticasone [From Flonase] Adverse Reaction (Severe, Verified 10/16/24 08:42) eyes burning amoxicillin Adverse Reaction (Verified 10/16/24 08:42) Vomiting Penicillins Adverse Reaction (Verified 10/16/24 08:42) rash Sulfa (Sulfonamide Antibiotics) Adverse Reaction (Verified 10/16/24 08:42) Anaphylaxis Medication List - Last Reconciled 10/16/24 by Henny Piña MD [B12 500 mcg PO DAILY] fenofibrate micronized 130 mg PO BEDTIME levonorgestrel (Mirena) 1 device intrauterine DIRECTED loratadine (Claritin) 10 mg PO DAILY multivitamin tabs omega-3 fatty acids 3,750 mg PO DAILY omeprazole 20 mg PO DAILY 90 days NS [Probiotic 1 PO DAILY] Tobacco use date assessed: 04/08/24 Dental Screening Dental Screen Date: 04/08/24 HPI Labs results HPI Details 49-year-old lady, here today for follow- up via telehealth. She was recently diagnosed and treated for pneumonia, and had an allergic reaction to erythromycin eyedrops when used recently. She is here for follow-up on recent fasting lab results which showed markedly elevated triglycerides and cholesterol levels as compared to last check. Patient states that she does have a family history for high cholesterol on her father's side and her mother's brother has from a heart attack at age 45. At present patient states that she has not really been compliant with her diet and has not been getting any regular exercise lately due to recent bout of pneumonia. She has been taking fish oil supplements but only to a day. [facility] Medical History (Updated 10/16/24 @ 09:04 by Henny Piña MD) Hx of herpes zoster URI, acute Mixed dyslipidemia Hx of cervical cancer History of COVID-19 Surgical History Hx of colonoscopy Hx of hernia repair Hx of section Hx of tonsillectomy Family History Mother Anxiety Migraine Sister Mental health disorder Father Prostate cancer Paternal Uncle Colon cancer Skin cancer (melanoma) Social History Household Members Other:: 2 daughters, 1 grandson- Housing: Apartment Patient Tobacco Use Status: Former Tobacco user e-Cigarette/Vaping Use: Never Used service: No Current occupational status: employed Cognitive needs: No Hearing needs: No Vision needs: Yes Questionnaire Thrive Questionnaire Date Thrive assessed: 04/02/24 AUDIT C Alcohol Use Questionnaire (AUDIT-C) 1. How often do you have a drink containing alcohol?: Monthly or less 2. How many drinks containing alcohol do you have on a typical day when you are drinking?: 1 or 2 3. How often do you have six or more drinks on one occasion?: Never Total Score: 1 Score Reviewed/Action Taken: Yes IRASEMA-7 AMB Questionnaire IRASEMA-7 Date IRASEMA - 7 assessed: 04/02/24 Source: Developed by Drs. Schuyler Rivera, Nelda Tobin, Carroll Salgado and colleagues, with an educational adriano from [employer]. Review of Systems Const Denies body aches, Denies fatigue, Denies fever(s), Denies headache(s) and Denies weakness Eyes Details: Goes to [facility] for her routine eye exam Denies change in vision ENT Denies dizziness, Denies headache(s), Denies nasal congestion, Denies nasal discharge and Denies sore throat Card Denies chest pain, Denies lightheadedness, Denies palpitations and Denies dyspnea Resp Denies chest congestion, Denies cough, Denies dyspnea and Denies wheezing GI Denies abdominal pain, Denies change in bowel habits and Denies heartburn Denies hematuria, Denies urinary frequency, Denies dysuria and Denies urinary urgency Musc Reports no additional complaints Skin/Breast Denies breast pain and Denies breast mass Neuro Denies dizziness, Denies headache(s) and Denies weakness Psych Reports no additional complaints Endo Denies fatigue, Denies polydipsia, Denies polyuria and Denies palpitations Primo/Lymph Denies easy bruising Aller/Immun Denies seasonal rhinorrhea and Denies wheezing Physical exam (Primary Care) Tobacco/Smoking Status: Tobacco use Status Tobacco use date assessed 04/08/24 10/16/24 08:14 Patient Tobacco Use Status Former Tobacco user 10/16/24 08:14 e-Cigarette/Vaping Use Never Used 10/16/24 08:14 Thrive Assessment: Date of Thrive Assessment Date Thrive assessed 04/02/24 10/16/24 08:14 Telehealth Telehealth Telehealth Platform: [employer] Location of provider rendering services: practice address Location of patient: address on file Patient Identification confirmed using: Name, : Yes Telehealth method: video Patient verbally consented to treatment: Yes Patient verbally consented to billing insurance company: Yes Patient informed of any privacy concerns related to visit: Yes Minutes spent on Phone/Video with Pt.: 15 Results Reviewed Results Reviewed: Name: SarthakFebruary Age/Sex: 49/F : 1975 Unit#: [id number] Attend Dr: Henny Piña MD Re10/07/24 Status: DEP REF [facility] Disch: SPEC : [id number] PAULINO: 10/07/24 STATUS: COMP REQ : [id number] RECD: 10/07/[address]: Henny Piña MD COMP: 10/07/24 ENTERED: 10/07/[address]: ORDERED: AST, ALT, Lipid Panel Test Result Flag Reference AST (GOT) 34 H 5-31 U/L ALT (GPT) 41 H 0-31 U/L Triglyceride 528 H <150 mg/dL Desirable Triglyceride: less than 150 mg/dL Borderline High Triglyceride 150-199 mg/dL High Triglyceride: 200-499 mg/dL Very High Triglyceride: greater than or equal to 5OO mg/dL Cholesterol 272 H <200 mg/dL Desirable Cholesterol: less than 200 mg/dL Borderline High Cholesterol: 200-239 mg/dL High Cholesterol: greater than 239 mg/dL LDL Calculated Test not performed <100 mg/dL Unable to calculate the LDL. The formula of Friedwald, Hart, and Souleymane is only valid if the triglycerides are less than 400 mg/dl. HDL 34 L >40 mg/dL Desirable HDL: greater than 40 mg/dL Note: This HDL assay may give artificially low results in patients with liver disease. Coding Level of Care Code Tele Est Pt Level 3 (01604) Complex EM visit Add On G2211 Diagnoses Mixed dyslipidemia E78.2 Assessment & Plan Assessment & Plan (1) Mixed dyslipidemia: Code(s): E78.2 - Mixed hyperlipidemia Category: Medical Plan: - will start on micronized fenofibrate 130 mg per tablet to take 1 at bedtime - Take fish oil twice daily with meals. - Abstain from alcohol consumption to improve liver health. - Monitor any worsening of vertiginous symptoms; seek medical advice if they become more frequent or severe. - Schedule blood work a couple of days before next 3-month appointment. - Follow the Mediterranean diet, increasing intake of wild-caught salmon and reducing sugar and shellfish. - Take time off during the holidays to relax and reduce stress levels. - Return for follow-up appointment in three months. Orders: Orders Lipid Panel 01/02/25 E78.2 - Mixed hyperlipidemia Alanine Aminotransferase 01/02/25 E78.2 - Mixed hyperlipidemia, Z86.19 - Personal history of other infectious and parasitic diseases Aspartate Amino Transferase 01/02/25 E78.2 - Mixed hyperlipidemia, Z86.19 - Personal history of other infectious and parasitic diseases Medications: New fenofibrate micronized 130 mg PO BEDTIME 90 caps 1RF E78.2 - Mixed hyperlipidemia
== END 2024-10-16 10:04 | disposition home or self-care (01) ==
LOC: HO.HMCC 08:09
PROVIDERS: PCP Internal Medicine; Visit Provider Internal Medicine
DX: E78.2 Mixed hyperlipidemia (principal)

== ENCOUNTER → 2024-10-16 08:09 | Outpatient (BNVA) | payer OTHER, SELFPAY | PROVIDERS: PCP Internal Medicine; Visit Provider Internal Medicine ==

== ENCOUNTER 2025-01-04 07:00 | Outpatient (REF) | payer OTHER, SELFPAY ==
--- OUTSIDE RECORDS SUMMARY | 2025-01-04 07:02 | XMS_ITS | Clinical Summary ---
Author Organization [facility] ity Address [address] [place] [address] Care Team Providers Care Java Development Manager Name Role Phone Cheri Horner MD Primary Care Provider [phone] Allergies Active Allergy Reactions Criticality Noted Date Comments Erythromycin 12/24/2006 gi distress Penicillins Rash 12/20/2005 Sulfa (Sulfonamide Antibiotics) Wheezing 12/05 Tetracycline 12/24/2006 gi distress Medications levonorgestreL (MIRENA) 21 mcg/24hr (up to 8 yrs) [address] Act anthony loratadine (CLARITIN) 10 mg tablet Take 10 mg by mouth daily. Active omeprazole (PriLOSEC) [address] capsule Take 10 mg by mouth daily. Active Active Problems Problem Noted Date Diagnosed Date GERD (gastroesophageal reflux disease) 7 Abnormal Pap smear of cervix 01/21/2006 Overview (11/05/2024): age 21, laser treatment Immunizations Name Administration Dates Next Due Hepatitis B (Yjvjlht-U-Uiihi , Recombivax HB-Adult) 19yo and older 01/17/2010,08/19/2009,07/20/2009 Influenza trivalent, 0.5mL, preservative free (Fluarix; FluLaval; Fluzone) ages 6mo and older (Afluria) 3 years and older 09/01/2013,07/22/2012,07/24/2011,2008 Influenza, Unspecified 08/16/2017,07/26/2014 MMR, measles mumps and rubel la Live (Priorix; M-M-R II) 12mo and older 07/27/2009 PPD Test 07/18/2009 Td Tetanus diptheria (Tdvax) 7yo and older 10/24/2004 Tdap Tetanus diptheria acell ular pertussis (Boostrix; Adacel) 7yo and older 07/24/2011 Surgical History Surgery Date Site/Laterality Comments SECTION PROCEDURE: [place] DELIVERY ONLY; COMMENT: x1. TONSILLECTOMY PROCEDURE: HISTORICAL TONSILLECTOMY; COMMENT: age 18 HERNIA REPAIR PROCEDURE: HISTORICAL HERNIA REPAIR/ING; COMMENT: age 1; bilateral CERVICAL BIOPSY W/ LOOP ELECTRODE EXCISION 1995 PROCEDURE: [place] CONIZATION CERVIX W/WO D&C RPR ELTRD EXC OTHER SURGICAL HISTORY 11/2018 PROCEDURE: MAMMOGRAM Medical History Medical History Date Comments Abnormal glandular Papanicol aou smear of cervix 1995 DX:Abnormal glandular Papani colaou smear of cervix; COMMENT: age 21, laser treatment, was stage I cervical cancer Other specified personal his tory presenting hazards to health(V15.89) DX:Other specifie d personal history presenting hazards to health(V15.89); COMMENT: leep, cervical GERD (gastroesophageal reflux disease) 09/11/2017 DX:GERD (gastroesophageal reflux disease) Family History Medical History Relation Name Comments Cervical cancer Aunt paternal Other: brain tumor Brother benign, s troke postop, seizures Colon polyps Father 3-5 lifetime po lyps Prostate cancer Father Diabetes Maternal Grandmother ag e 72 [place], cataract Colon polyps Mother osteoporosis Kidney failure Mother's side 1 great aunt ; diabetes, dialysis Heart attack Mother's side 2 uncle a t 44. Cirrhosis Paternal Grandfather schizop hrenic Other: Spinal tumor Paternal Grandmother 34 Colon cancer Uncle 1 paternal, melan john Colon cancer Uncle 2 paternal Breast cancer Neg Hx Cancer of Small Bowel Neg Hx Kidney cancer Neg Hx Ovarian cancer Neg Hx Pancreatic cancer Neg Hx Uterine cancer Neg Hx Relation Name Status Comments Aunt Brother Father Alive Maternal Grandmother Mother Alive Mother's side 1 Mother's side 2 Paternal Grandfather Paternal Grandmother Uncle 1 Uncle 2 Social History Tobacco Use Types Packs/Day Years Used Date Smoking Tobacco: Former Cigarettes Q uit: 10/13/2001 Smokeless Tobacco: Never Alcohol Use Standard Drinks/Week Comments Yes 0 (1 standard drink = 0.6 oz pur e alcohol) Comments Unknown Sex and Gender Information Value Date Recorded Sex Assigned at Not on file Legal Sex Female 4:04 AM EST Gender Identity Not on file Sexual Orientation Not on file Obstetrics History Last Filed Vital Signs Vital Sign Reading Time Taken Comments Blood Pressure 110/64 12/26/2023 9:45 AM EST Pulse 76 11/08/2022 8:56 AM EST Temperature - - Respiratory Rate - - Oxygen Saturation - - Inhaled Oxygen Concentration - - Weight 64 kg (141 lb) 12/26/2023 9:45 AM EST Height 154.9 cm (5' 1 ) 12/26/2023 9:45 AM EST Body Mass Index 26.64 12/26/2023 9:45 AM EST Plan of Treatment Upcoming Encounters Date Type Department Care Team (Late st Contact Info) Description 05/05/2025 10:40 AM EDT Appointment Radiology Department - [address] [address] 05/05/2025 10:55 AM EDT Appointment Radiology Department - [address] [address] Health Maintenance Due Date Last Done Comments DTaP,Tdap,and Td Vaccines (3 - Td or Tdap) 07/24/2021 07/24/2011, 10/24/2004 Colorectal Cancer Screening: Colonoscopy 10/13/2022 Depression Screening 10/13/2022 HIV Screening 10/13/2022 Hepatitis C Screening 10/13/2022 Social Influencers of Health Screening 10/13/2022 Pneumococcal Vaccine: 50+ Years (1 of 1 - PCV) 2024 Zoster Vaccines (1 of 2) 2024 COVID-19 Vaccine (1 - 2023- season) 2024 Influenza Vaccine (#1) 2024 7, 07/26/2014, 09/01/2013, Additional history exists Breast Cancer Screening 04/24/2026 04/24/20 24, 04/24/2024, 05/10/2023, Additional history exists Cervical Cancer Screening: HPV 12/26/2028 12/26/2023 MMR Vaccines Aged Out 07/27/2009 No longer eligi ble based on patient's age to complete this topic Hepatitis B Vaccines Completed 01/17/2010, 08/19/2009, 07/20/2009 HIB Vaccines Aged Out No longer eligi ble based on patient's age to complete this topic HPV Vaccines Aged Out No longer eligi ble based on patient's age to complete this topic Hepatitis A Vaccines Aged Out No long er eligible based on patient's age to complete this topic IPV Vaccines Aged Out No longer eligi ble based on patient's age to complete this topic Meningococcal ACWY Vaccine Aged Out N o longer eligible based on patient's age to complete this topic Meningococcal B Vacine Aged Out No lo nger eligible based on patient's age to complete this topic Pneumococcal Vaccine: Pediatrics (0 to 5 Years) and At-Risk Patients (6 to 64 Years) Aged Out No longer eligible based on patient's age to complete this topic RSV Immunization Patients Under 20 months Aged Out No longer eligible based on patient's age to complete this topic Varicella Vaccines Aged Out No longer eligible based on patient's age to complete this topic Procedures Procedure Name Priority Date/Time Associated Diagnosis Comments SCREENING MAMMOGRAPHY BI 2-VIEW BREAST INC CAD Routine 04/24/2024 1:33 PM EDT Encounter for screening mammogram for malignant neoplasm of breast HM HPV Routine 12/26/2023 from Last 3 Months or Most Recently Relevant to Health Maintenance Results * SCREENING MAMMOGRAPHY BI 2-VIEW BREAST INC CAD (04/24/2024 1:33 PM EDT) Anatomical Region Laterality Modality Radiographic Valentina ging 04/08/2023 5:52 PM EDT Narrative 04/24/2024 1:51 PM EDT This is a summary report. The complete report is available in the patient's medical record. If you cannot access the medical record, please contact the sending organization for a detailed fax or copy. Full field digital screening 2D C views and tomosynthesis mammography, reviewed with CAD and compared to previous. The breast tissue is heterogeneously dense, limiting sensitivity. No suspicious mass, architectural distortion or suspicious calcifications are identified. IMPRESSION: : Dense breast tissue, limiting the sensitivity of mammography. No mammographic evidence of malignancy. BIRADS 1-Negative; N. 5 year breast cancer risk assessment 0.8 % Lifetime breast cancer risk assessment 7.4 % Breast cancer risk category Low (<15%) Procedure Note Janessa Britt MD - 08/19/2024 This is a summary report. The complete report is available in thepatient's medical record. If you cannot access the medical record, pleasecontact the sending organization for a detailed fax or copy. Full field digital screening 2D C views and tomosynthesis mammography,reviewed with CAD and compared to previous. The breast tissue isheterogeneously dense, limiting sensitivity. No suspicious mass,architectural distortion or suspicious calcifications are identified. IMPRESSION: : Dense breast tissue, limiting the sensitivity of mammography. Nomammographic evidence of malignancy. BIRADS 1-Negative; N. 5 year breast cancer risk assessment 0.8 % Lifetime breast cancer risk assessment 7.4 % Breast cancer risk category Low (<15%) Henny Piña MD IMG XR PROCEDURES Final Res ult * Cervical Cancer Screening: HPV (12/26/2023) Cervical Cancer Screening: HPV Abstracted ,negative Historical Provider HEALTH MAINTENANCE Final Result from Last 3 Months or Most Recently Relevant to Health Maintenance Care Teams Java Development Manager Relationship Specialty Start Date End Date Cheri Horner MD [address] [place] [id number] PCP - General 12/25/04
[2025-01-04 10:56] LABS: Alanine Aminotransferase 62 U/L (0-31); Aspartate Amino Transferase 45 U/L (5-31); Cholesterol 216 mg/dL (<200); HDL Cholesterol 38 mg/dL (>40); LDL Cholesterol Calculated 104 mg/dL (<100); Triglycerides 374 mg/dL (<150)
== END 2025-01-04 07:01 | disposition home or self-care (01) ==
LOC: HO.HMGCLDS 07:00
PROVIDERS: PCP Internal Medicine; Visit Provider Internal Medicine
DX: E78.2 Mixed hyperlipidemia (principal); Z86.19 Personal history of other infectious and parasitic diseases
CPT/HCPCS: 36415; 80061; 84450; 84460

== ENCOUNTER 2025-01-07 08:00 | Outpatient (AMB) | payer OTHER, SELFPAY ==
--- OUTSIDE RECORDS SUMMARY | 2025-01-07 08:10 | XMS_ITS | Clinical Summary ---
Author Organization [facility] ity Address [address] [place] [address] Care Team Providers Care Bond Broker Name Role Phone Cheri Horner MD Primary Care Provider [phone] Allergies Active Allergy Reactions Criticality Noted Date [...] Name Administration Dates Next Due Hepatitis B (Kfzjskg-U-Yncke , Recombivax HB-Adult) 19yo and older 01/17/2010,08/19/2009,07/20/2009 [...] History Surgery Date Site/Laterality Comments SECTION PROCEDURE: [place] DELIVERY ONLY; COMMENT: x1. TONSILLECTOMY PROCEDURE: HISTORICAL TONSILLECTOMY; COMMENT: age 18 HERNIA REPAIR PROCEDURE: HISTORICAL HERNIA REPAIR/ING; COMMENT: age 1; bilateral CERVICAL BIOPSY W/ LOOP ELECTRODE EXCISION 1995 PROCEDURE: [place] CONIZATION CERVIX W/WO D&C RPR ELTRD EXC [...] Father Diabetes Maternal Grandmother ag e 72 [place], cataract Colon polyps Mother osteoporosis Kidney failure [...] 10:40 AM EDT Appointment Radiology Department - [address] [address] 05/05/2025 10:55 AM EDT Appointment Radiology Department - [address] [address] Health Maintenance Due Date Last Done Comments [...] Recently Relevant to Health Maintenance Care Teams Bond Broker Relationship Specialty Start Date End Date Cheri Horner MD [address] [place] [id number] PCP - General 12/25/04
[2025-01-07 08:13] VITALS: BP 104/66; PULSE 70; RESP 16; TEMP 36.9; O2SAT 99; BMI 27.2
--- NOTE | 2025-01-07 08:13 | A.OFFPC_ITS ---
Vital Signs 01/07/25 08:13 Height 5 ft 1 in Weight 144 lb BMI 27.2 BP 104/66 Blood Pressure Location Rt brachial Position Sitting Respiration 16 Pulse 70 Pulse Source Pulse Oximeter Temp 98.4 F Temp Source Oral Pulse Oximetry (%) 99 Oxygen Delivery Method Room Air Intake Visit Reasons: 3 months follow up/labs Intake Note: Pt is here today for hier 3mo. f/u labs Allergies fluticasone [From Flonase] Adverse Reaction (Severe, Verified 01/07/25 08:24) eyes burning amoxicillin Adverse Reaction (Verified 01/07/25 08:24) Vomiting Penicillins Adverse Reaction (Verified 01/07/25 08:24) rash Sulfa (Sulfonamide Antibiotics) Adverse Reaction (Verified 01/07/25 08:24) Anaphylaxis Medication List - Last Reconciled 01/07/25 by Henny Piña MD [B12 500 mcg PO DAILY] fenofibrate micronized 130 mg PO BEDTIME levonorgestrel (Mirena) 1 device intrauterine DIRECTED loratadine (Claritin) 10 mg PO DAILY multivitamin tabs omega-3 fatty acids 3,750 mg PO DAILY pantoprazole 40 mg PO DAILY [Probiotic 1 PO DAILY] Tobacco use date assessed: 01/07/25 Dental Screening Dental Screen Date: 01/07/25 Did you have a dental visit in the last 12 months?: Yes Did you have a dental problem in the last 6 months where you did not have access to dental care?: No Was dental information given to patient?: Patient has dentist HPI 3 months follow up/labs HPI Details 49-year-old lady with history of mixed d yslipidemia currently on fenofibrate started on last visit, here today for follow-up. She has been compliant with her medications and tries to adhere to a low-cholesterol diet but has not been getting any regular exercise lately. Latest fasting labs showed improvement in her triglycerides, but still not at goal of less than 150 mg/dL. She also has been having frequent heartburn, takes pantoprazole which has been helping, but still gets breakthrough episodes especially at night. [facility] Medical History (Updated 01/09/25 @ 21:40 by Henny Piña MD) Hx of herpes zoster Mixed dyslipidemia Hx of cervical cancer History of COVID-19 Surgical History Hx of colonoscopy Hx of hernia repair Hx of section Hx of tonsillectomy Family History Mother Anxiety Migraine Sister Mental health disorder Father Prostate cancer Paternal Uncle Colon cancer Skin cancer (melanoma) Social History Household Members Other:: 2 daughters, 1 grandson- Housing: Apartment Patient Tobacco Use Status: Former Tobacco user e-Cigarette/Vaping Use: Never Used service: No Current occupational status: employed Cognitive needs: No Hearing needs: No Vision needs: Yes Questionnaire PHQ-9 Over the last 2 weeks, how often have you been bothered by any of the following problems? 1. Little interest or pleasure in doing things: not at all 2. Feeling down, depressed, or hopeless: not at all 3. Trouble falling or staying asleep, or sleeping too much: not at all 4. Feeling tired or having little energy: not at all 5. Poor appetite or overeating: not at all 6. Feeling bad about yourself - or that you are a failure or have let yourself or your family down: not at all 7. Trouble concentrating on things, such as reading the newspaper or watching television: not at all 8. Moving or speaking so slowly that other people could have noticed. Or the opposite - being so fidgety or restless that you have been moving around a lot more than usual: not at all 9. Thoughts that you would be better off or of hurting yourself in some way: not at all Total score: 0 Depression Screening Interpretation: Negative Depression Screening Done: Yes 08481 - PHQ-9 Billing: Yes Source: Developed by Drs. Schuyler Rivera, Nelda Tobin, Carroll Salgado and colleagues, with an educational adriano from [employer]. Thrive Questionnaire Date Thrive assessed: 01/07/25 I am a: Patient What is your living situation today?: I have a steady place to live Within the past 12 months, did the food you bought not last and you didn't have the money to get more?: Never true Within the past 12 months, did you worry whether your food would run out before you got money to buy more?: Never true Do you have trouble paying for medicines?: No Do you have trouble getting transportation to medical appointments?: No Do you have trouble paying your heating and electricity bill?: No Do you have trouble taking care of your child, family member or friend?: No Do you have trouble with day-to-day activities such as bathing, preparing meals, shopping, managing finances, etc.?: No Are you currently unemployed and looking for a job?: No Are you interested in more education?: No Please select the resources that you would like help with: None Currently or been in a relationship where the following occur: No concerns reported THRIVE Score: 0 AUDIT C Alcohol Use Questionnaire (AUDIT-C) 1. How often do you have a drink containing alcohol?: Monthly or less 2. How many drinks containing alcohol do you have on a typical day when you are drinking?: 1 or 2 3. How often do you have six or more drinks on one occasion?: Never Total Score: 1 IRASEMA-7 AMB Questionnaire IRASEMA-7 Date IRASEMA - 7 assessed: 01/07/25 Feeling nervous, anxious, or on edge: 0 = Not at all Not being able to stop or control worryin = Not at all Worrying too much about different things: 0 = Not at all Trouble relaxin = Not at all Being so restless that it is hard to sit still: 0 = Not at all Becoming easily annoyed or irritable: 0 = Not at all Feeling afraid as if something awful might happen: 0 = Not at all Total IRASEMA-7 score (0-4 normal; 5-9 mild; 10-14 moderate; 15-21 severe): 0 Source: Developed by Drs. Schuyler Rivera, Nelda Tobin, Carroll Salgado and colleagues, with an educational adriano from [employer]. IRASEMA-7 Assessment Billing IRASEMA-7 Assessment Tool: IRASEMA-7 Assessment 09817 Review of Systems Const Denies body aches, Denies fatigue, Denies fever(s), Denies headache(s) and Denies weakness Eyes Details: Goes to [facility] for her routine eye exam ENT Denies dizziness, Denies headache(s) and Denies nasal congestion Card Denies chest pain, Denies lightheadedness, Denies palpitations and Denies dyspnea Resp Denies chest congestion, Denies cough, Denies dyspnea and Denies wheezing GI Reports as per HPI, Denies abdominal pain, Denies melena, Denies hematochezia and Denies change in bowel habits Denies hematuria, Denies urinary frequency, Denies dysuria and Denies urinary urgency Musc Reports no additional complaints Neuro Denies dizziness, Denies headache(s) and Denies weakness Psych Reports no additional complaints Endo Denies fatigue, Denies polydipsia, Denies polyuria and Denies palpitations Aller/Immun Denies seasonal rhinorrhea and Denies wheezing Physical exam (Primary Care) Vital Signs: Last Vital Signs Temp 98.4 F 01/07/25 08:13 Pulse 70 01/07/25 08:13 Resp 16 01/07/25 08:13 BP 104/66 01/07/25 08:13 Pulse Ox 99 01/07/25 08:13 Oxygen Delivery Method Room Air 01/07/25 08:13 BMI result Body Mass Index 27.2 Tobacco/Smoking Status: Tobacco use Status Tobacco use date assessed 01/07/25 01/07/25 08:18 Patient Tobacco Use Status Former Tobacco user 01/07/25 08:18 e-Cigarette/Vaping Use Never Used 01/07/25 08:18 PHQ-9: PHQ-9 Score PHQ-9: Total score 0 01/07/25 08:24 Depression Screening Interpretation: Negative Thrive Assessment: Date of Thrive Assessment Date Thrive assessed 01/07/25 01/07/25 08:18 Currently or been in a relationship where the following occur: No concerns reported Const General: comfortable and no acute distress Orientation/consciousness: patient oriented x3 HENMT Ears: EAC's normal General nose exam: Normal external nose present Face and sinus: Yes face symmetric Mouth: Normal oral and palatal mucosa present, oropharynx normal and moist mucous membranes Eyes General: appearance normal, both eyes and all related structures Neck Neck: Yes full ROM, Yes no lymphadenopathy and Yes supple Resp Effort & Inspection: normal respiratory effort and able to speak in complete sentences Auscultation: clear to auscultation bilaterally Cardio Rate: regular rate Rhythm: regular rhythm Heart sounds: S1 normal heart sound present and S2 normal heart sound present GI Inspection: Yes normal to inspection Palpation (GI): Soft to palpation, nontender, no guarding and Palpable mass present Auscultation: normal bowel sounds General: Yes deferred (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) Neuro General: patient oriented x3 Extrem General: Yes full ROM, Yes no joint enlargement, Yes no clubbing, cyanosis or edema, Yes no calf tenderness and Yes normal gait Psych Appearance: grossly normal and well kempt Mental Status: mental status grossly normal Speech and movement: Normal speech and movement present Affect: normal affect Results Reviewed Results Reviewed: Name: SarthakFebruary Age/Sex: 49/F : 1975 Unit#: [id number] Attend Dr: Henny Piña MD Re01/04/25 Status: DEP REF Location: [facility] Disch: SPEC : [id number] PAULINO: 01/04/25 STATUS: COMP REQ : [id number] RECD: 01/04/25-[address]: Henny Piña MD COMP: 01/04/25 ENTERED: 01/04/[address]: ORDERED: AST, ALT, Lipid Panel Test Result Flag Reference AST (GOT) 45 H 5-31 U/L ALT (GPT) 62 H 0-31 U/L Triglyceride 374 H <150 mg/dL Slight Lipemia. Desirable Triglyceride: less than 150 mg/dL Borderline High Triglyceride 150-199 mg/dL High Triglyceride: 200-499 mg/dL Very High Triglyceride: greater than or equal to 5OO mg/dL Cholesterol 216 H <200 mg/dL Desirable Cholesterol: less than 200 mg/dL Borderline High Cholesterol: 200-239 mg/dL High Cholesterol: greater than 239 mg/dL LDL Calculated 104 H <100 mg/dL Desirable LDL: less than 100 mg/dL Near Optimal/Above Optimal LDL: 110-129 mg/dL Borderline High LDL: 130-159 mg/dL High LDL: 160-189 mg/dL Very High LDL: greater than or equal to 190 mg/dL HDL 38 L >40 mg/dL Desirable HDL: greater than 40 mg/dL Note: This HDL assay may give artificially low results in patients with liver disease. Coding Level of Care Code Est Pt Level 4 (11477) Complex EM visit Add On G2211 Diagnoses Mixed dyslipidemia E78.2 GERD (gastroesophageal reflux disease) K21.9 Additional Codes PHQ-9 - 04471 - PHQ-9 Billing: Yes ([id number]) IRASEMA-7 Assessment Billing - IRASEMA-7 Assessment Tool: IRASEMA-7 Assessment 04995 ([id number]) Assessment & Plan Assessment & Plan (1) Mixed dyslipidemia: Code(s): E78.2 - Mixed hyperlipidemia Category: Medical Plan: Reviewed recent fasting lipid panel with patient, with improvement in her triglycerides, but still not at goal. Continued on fenofibrate 130 mg at night, and added [place] 3 fatty acid supplements, Lovaza, 2 capsules p.o. twice a day. Reinforced importance of following a low-cholesterol diet and getting regular exercise. Will repeat another fasting lipid panel in May prior to next appointment. (2) GERD (gastroesophageal reflux disease): Code(s): K21.9 - Gastro-esophageal reflux disease without esophagitis Category: Medical Plan: Refill sent for pantoprazole mg daily, and added famotidine 40 mg at bedtime as needed for breakthrough heartburn symptoms. Orders: Orders Lipid Panel 05/04/25 E78.2 - Mixed hyperlipidemia Liver Panel 05/04/25 E78.2 - Mixed hyperlipidemia Medications: New omega-3 acid ethyl esters (Lovaza) 2 caps PO BID 30 days 120 caps 5RF E78.2 - Mixed hyperlipidemia famotidine 40 mg PO BEDTIME 90 tabs 1RF Refilled fenofibrate micronized 130 mg PO BEDTIME 90 caps 1RF E78.2 - Mixed hyperlipidemia pantoprazole Take an hour before eating 40 mg PO DAILY 30 tabs 5RF
== END 2025-01-07 08:44 | disposition home or self-care (01) ==
PROVIDERS: PCP Internal Medicine; Visit Provider Internal Medicine
DX: E78.2 Mixed hyperlipidemia (principal); K21.9 Gastro-esophageal reflux disease without esophagitis

== ENCOUNTER → 2025-01-07 08:00 | Outpatient (BNVA) | payer OTHER, SELFPAY | PROVIDERS: PCP Internal Medicine; Visit Provider Internal Medicine | DX: E78.2 Mixed hyperlipidemia (principal); K21.9 Gastro-esophageal reflux disease without esophagitis | CPT/HCPCS: 96127 ==

== ENCOUNTER 2025-03-30 07:57 | Outpatient (AMB) | payer OTHER, SELFPAY ==
--- NOTE | 2025-03-30 08:09 | AM.OFFWIN_ITS ---
Intake Vital Signs 03/30/25 08:14 Height 5 ft 1 in Weight 144 lb BMI 27.2 BP 110/70 Blood Pressure Location Lt brachial Position Sitting Pulse 74 Pulse Source Pulse Oximeter Temp 98.1 F Temp Source Oral Pulse Oximetry (%) 99 Intake Visit Reasons: EP injured RT ankle Patient Tobacco Use Status: Former Tobacco user Allergies fluticasone [From Flonase] Adverse Reaction (Severe, Verified 03/30/25 08:14) eyes burning amoxicillin Adverse Reaction (Verified 03/30/25 08:14) Vomiting Penicillins Adverse Reaction (Verified 03/30/25 08:14) rash Sulfa (Sulfonamide Antibiotics) Adverse Reaction (Verified 03/30/25 08:14) Anaphylaxis Do you need a note to return to daycare/school/sports/work: Yes HPI HPI Comments History of Present Illness Details 50 y/o Female patient who presents to [facility] walk in clinic with c/o Right Ankle pain since Saturday. Pt was walking down stairs, tripped and twisted her right ankle. Reports pain with moving foot. She has not used any OTC remedies or Applying Ice/Heat. Denies swelling, numbness or tingling. [facility] Medical History (Updated 03/30/25 @ 08:22 by Amy Clement NP) Muscle strain of right ankle Hx of herpes zoster Mixed dyslipidemia Hx of cervical cancer History of COVID-19 Surgical History Hx of colonoscopy Hx of hernia repair Hx of section Hx of tonsillectomy Family History Mother Anxiety Migraine Sister Mental health disorder Father Prostate cancer Paternal Uncle Colon cancer Skin cancer (melanoma) Social History Household Members Other:: 2 daughters, 1 grandson- Housing: Apartment Patient Tobacco Use Status: Former Tobacco user e-Cigarette/Vaping Use: Never Used service: No Current occupational status: employed Cognitive needs: No Hearing needs: No Vision needs: Yes Review of Systems Const All systems reviewed & are unremarkable except as noted in HPI and below Physical Exam Vital Signs: Last Vital Signs Temp 98.1 F 03/30/25 08:14 Pulse 74 03/30/25 08:14 BP 110/70 03/30/25 08:14 Pulse Ox 99 03/30/25 08:14 BMI result Body Mass Index 27.2 Const General: comfortable and no acute distress Nutritional Appearance: well nourished Orientation/consciousness: patient oriented x3 Neuro General: patient oriented x3, gait normal and moves all extremities Extrem Right lower extremity: ankle (No swelling, Full ROM, Mild TTP) Details: normal to inspection, tenderness Location: of the medial malleolus, no edema and normal ROM; no swelling Left lower extremity: normal to inspection and full ROM Assessment & Plan Assessment & Plan (1) Muscle strain of right ankle: Code(s): S96.911A - Strain of unspecified muscle and tendon at ankle and foot level, right foot, initial encounter Qualifiers: Encounter type: initial encounter Qualified Code(s): S96.911A - Strain of unspecified muscle and tendon at ankle and foot level, right foot, initial encounter Plan: Ordered Xray Ankle to r/o Fracture. NSAIDs and Acetaminophen for pain relief. Ice/Hot and rest joint. Orders: Orders XR ankle RT min 3V Today S96.911A - Strain of unspecified muscle and tendon at ankle and foot level, right foot, initial encounter Coding Level of Care Code Est Pt Level 4 (13793) Diagnoses Muscle strain of right ankle, initial encounter S96.911A Encounter type: initial encounter Time Spent (min) 20
[2025-03-30 08:14] VITALS: BP 110/70; PULSE 74; TEMP 36.7; O2SAT 99; BMI 27.2
== END 2025-03-30 08:43 | disposition home or self-care (01) ==
PROVIDERS: PCP Internal Medicine; Visit Provider Nurse Practitioner Family
DX: S96.911A Strain of unspecified muscle and tendon at ankle and foot level, right foot, initial encounter (principal)

== ENCOUNTER 2025-03-30 07:57 | Outpatient (REF) | payer OTHER, SELFPAY ==
--- NOTE | ~2025-03-30 | XR_ITS ---
EXAMINATION: XR ANKLE 3 OR MORE VIEWS RIGHT HISTORY: S96.911A - Strain of unspecified muscle and tendon at ankle and foot... COMPARISON: There are no prior studies available for comparison. FINDINGS: Three views of the right ankle are submitted. Osseous mineralization is normal. There is no fracture or dislocation. The joint spaces are preserved. There is a tiny plantar calcaneal spur. The soft tissues are unremarkable. XR/XR ankle RT min 3V IMPRESSION: Tiny plantar calcaneal spur. Otherwise unremarkable examination of the right ankle. Electronically signed by: Schuyler Caal MD 03/30/2025 08:53 AM EDT
== END 2025-03-30 07:58 | disposition home or self-care (01) ==
LOC: HO.HMGCX 07:57
PROVIDERS: PCP Internal Medicine; Visit Provider Nurse Practitioner Family
DX: S96.911A Strain of unspecified muscle and tendon at ankle and foot level, right foot, initial encounter (principal)
CPT/HCPCS: 73610

== ENCOUNTER → 2025-03-30 08:34 | Outpatient (BNV) | payer OTHER, SELFPAY | PROVIDERS: PCP Internal Medicine; Visit Provider Radiology Diagnostic Radiology | DX: S96.911A Strain of unspecified muscle and tendon at ankle and foot level, right foot, initial encounter (principal) | CPT/HCPCS: 73610 ==

== ENCOUNTER 2025-05-04 07:27 | Outpatient (REF) | payer OTHER, SELFPAY ==
--- OUTSIDE RECORDS SUMMARY | 2025-05-04 07:29 | XMS_ITS | Clinical Summary ---
Author Organization [facility] Address [address] [place] [address] Phone Care Team Providers Care Manager Of School Name Role Phone Cheri Horner MD Primary Care Provider [phone] Allergies Active Allergy Reactions Criticality Noted Date [...] Name Administration Dates Next Due Hepatitis B (Weglqxw-J-Jfart , Recombivax HB-Adult) 19yo and older 01/17/2010,08/19/2009,07/20/2009 [...] History Surgery Date Site/Laterality Comments SECTION PROCEDURE: [place] DELIVERY ONLY; COMMENT: x1. TONSILLECTOMY PROCEDURE: HISTORICAL TONSILLECTOMY; COMMENT: age 18 HERNIA REPAIR PROCEDURE: HISTORICAL HERNIA REPAIR/ING; COMMENT: age 1; bilateral CERVICAL BIOPSY W/ LOOP ELECTRODE EXCISION 1995 PROCEDURE: [place] CONIZATION CERVIX W/WO D&C RPR ELTRD EXC [...] Father Diabetes Maternal Grandmother ag e 72 [place], cataract Colon polyps Mother osteoporosis Kidney failure [...] Care Team (Late st Contact Info) Description 05/17/2025 9:30 AM EDT Hospital Encounter Radiology Department - [address] [phone] 05/17/2025 10:00 AM EDT Appointment Radiology Department - [address] [phone] 06/28/2025 3:40 PM EDT Office Visit Obstetrics and Gynecology - [address] [phone] Lianna Jordan, [facility] [address] [place] [address] Health Maintenance Due Date Last Done Comments DTaP,Tdap,and Td Vaccines (3 - Td or Tdap) 07/24/2021 07/24/2011, 10/24/2004 Colorectal Cancer Screening: Colonoscopy 10/13/2022 Depression Screening 10/13/2022 HIV Screening 10/13/2022 Hepatitis C Screening 10/13/2022 Social Influencers of Health Screening 10/13/2022 Pneumococcal Vaccine: 50+ Years (1 of 1 - PCV) 2024 Zoster Vaccines (1 of 2) 2024 COVID-19 Vaccine (1 - season) 2024 Influenza Vaccine (Season Ended) 2025 08/16/2017, 07/26/2014, 09/01/2013, Additional history exists Breast Cancer [...] age to complete this topic Meningococcal B Vaccine Aged Out No l onger eligible based on patient's age to complete [...] screening mammogram for malignant neoplasm of breast HPV Routine 12/26/2023 from Last 3 Months [...] or Most Recently Relevant to Health Maintenance Insurance [employer] [id number] MIR Care Teams Manager Of School Relationship Specialty Start Date End Date Cheri Horner MD [address] [place] [address] PCP - General 12/25/04
[2025-05-04 10:30] LABS: Alanine Aminotransferase 43 U/L (0-31); Albumin Level 4.5 g/dL (3.5-5.0); Alkaline Phosphatase 32 U/L (39-117); Aspartate Amino Transferase 31 U/L (5-31); Cholesterol 239 mg/dL (<200); HDL Cholesterol 44 mg/dL (>40); Total Protein 6.6 g/dL (6.5-8.0); Triglycerides 191 mg/dL (<150)
== END 2025-05-04 07:28 | disposition home or self-care (01) ==
LOC: HO.HMGCLDS 07:27
PROVIDERS: PCP Internal Medicine; Visit Provider Internal Medicine
DX: E78.2 Mixed hyperlipidemia (principal)
CPT/HCPCS: 36415; 80061; 80076

== ENCOUNTER 2025-05-10 08:27 | Outpatient (AMB) | payer OTHER, SELFPAY ==
--- OUTSIDE RECORDS SUMMARY | 2025-05-10 08:37 | XMS_ITS | Clinical Summary ---
Author Organization [facility] [address] [place] [address] [place] [phone] Phone Care Team Providers Care Seater Grinder Name Role Phone Cheri Horner MD Primary Care Provider Allergies Active Allergy Reactions Criticality Noted Date [...] Name Administration Dates Next Due Hepatitis B (Tuhwtif-L-Mlhgu , Recombivax HB-Adult) 19yo and older 01/17/2010,08/19/2009,07/20/2009 [...] History Surgery Date Site/Laterality Comments SECTION PROCEDURE: [place] DELIVERY ONLY; COMMENT: x1. TONSILLECTOMY PROCEDURE: HISTORICAL TONSILLECTOMY; COMMENT: age 18 HERNIA REPAIR PROCEDURE: HISTORICAL HERNIA REPAIR/ING; COMMENT: age 1; bilateral CERVICAL BIOPSY W/ LOOP ELECTRODE EXCISION 1995 PROCEDURE: [place] CONIZATION CERVIX W/WO D&C RPR ELTRD EXC [...] Father Diabetes Maternal Grandmother ag e 72 [place], cataract Colon polyps Mother osteoporosis Kidney failure [...] AM EDT Hospital Encounter Radiology Department - [address] [phone] 05/17/2025 10:00 AM EDT Appointment Radiology Department - [address] [phone] 06/28/2025 3:40 PM EDT Office Visit Obstetrics and Gynecology - [address] [phone] Lianna Jordan, [facility] [address] [place] [address] Health Maintenance Due Date Last Done Comments DTaP,Tdap,and Td Vaccines (3 - Td or Tdap) 07/24/2021 07/24/2011, 10/24/2004 Colorectal Cancer Screening: Colonoscopy 10/13/2022 Depression Screening 10/13/2022 HIV Screening 10/13/2022 Hepatitis C Screening 10/13/2022 Social Influencers of Health Screening 10/13/2022 Pneumococcal Vaccine: 50+ Years (1 of 1 - PCV) 2024 Zoster Vaccines (1 of 2) 2024 COVID-19 Vaccine (1 - season) 2024 Influenza Vaccine (#1) 2025 7, 07/26/2014, 09/01/2013, Additional history exists Breast [...] Relevant to Health Maintenance Insurance [employer] [id number] [employer] Care Teams Seater Grinder Relationship Specialty Start Date End Date Cheri Horner MD [address] [place] [id number] PCP - General 12/25/04
--- NOTE | 2025-05-10 08:51 | A.OFFPC_ITS ---
Vital Signs 05/10/25 09:01 Height 5 ft 1 in Weight 147 lb BMI 27.8 BP 114/84 Blood Pressure Location Rt brachial Position Sitting Respiration 16 Pulse 77 Pulse Source Pulse Oximeter Temp 98.1 F Temp Source Oral Pulse Oximetry (%) 98 Oxygen Delivery Method Room Air Intake Visit Reasons: PE Intake Note: Pt is here today for her PE: last mammogram 04/24/24, colonoscopy 05/15/24 Allergies fluticasone (From Flonase) Adverse Reaction (Severe, Verified 05/10/25 09:00) eyes burning amoxicillin Adverse Reaction (Verified 05/10/25 09:00) Vomiting Penicillins Adverse Reaction (Verified 05/10/25 09:00) rash Sulfa (Sulfonamide Antibiotics) Adverse Reaction (Verified 05/10/25 09:00) Anaphylaxis Tetracyclines Adverse Reaction (Verified 05/10/25 09:00) Vomiting Medication List - Last Reconciled 05/16/25 by Henny Piña MD [B12 500 mcg PO DAILY] famotidine 40 mg PO BEDTIME fenofibrate micronized 130 mg PO BEDTIME hydroxyzine HCl 10 mg PO BEDTIME PRN levonorgestrel (Mirena) 1 device intrauterine DIRECTED loratadine (Claritin) 10 mg PO DAILY multivitamin tabs omega-3 acid ethyl esters (Lovaza) 2 caps PO BID 30 days pantoprazole 40 mg PO DAILY [Probiotic 1 PO DAILY] tretinoin 0.025% appl topical Tobacco use date assessed: 05/10/25 Dental Screening Dental Screen Date: 05/10/25 Did you have a dental visit in the last 12 months?: Yes Did you have a dental problem in the last 6 months where you did not have access to dental care?: No Was dental information given to patient?: Patient has dentist HPI PE HPI Details 49-year-old lady with history of mixed d yslipidemia currently on fenofibrate started on last visit, here today for her yearly physical exam. Last breast cancer screening was done in [facility] in April of 2024, patient states she is scheduled for her mammogram already. Last colon cancer screening was done by Dr. Vora in 2023 with removal of a serrated and a hyperplastic polyp, repeat colonoscopy due again in 2026. Last cervical screening was done in [facility], in 2021 with benign findings. Has been having occasional episodes of anxiety and difficulty sleeping at night. Denies any depression or triggers for her complaints. FOR[facility]LY [facility], LATER [facility] Medical History Muscle strain of right ankle Hx of herpes zoster Mixed dyslipidemia Hx of cervical cancer History of COVID-19 Surgical History Hx of colonoscopy Hx of hernia repair Hx of section Hx of tonsillectomy Family History Mother Anxiety Migraine Sister Mental health disorder Father Prostate cancer Paternal Uncle Colon cancer Skin cancer (melanoma) Social History Household Members Other:: 2 daughters, 1 grandson- Housing: Apartment Patient Tobacco Use Status: Former Tobacco user e-Cigarette/Vaping Use: Never Used service: No Current occupational status: employed Cognitive needs: No Hearing needs: No Vision needs: Yes Questionnaire Thrive Questionnaire Date Thrive assessed: 01/07/25 I am a: Patient What is your living situation today?: I have a steady place to live Within the past 12 months, did the food you bought not last and you didn't have the money to get more?: Never true Within the past 12 months, did you worry whether your food would run out before you got money to buy more?: Never true Do you have trouble paying for medicines?: No Do you have trouble getting transportation to medical appointments?: No Do you have trouble paying your heating and electricity bill?: No Do you have trouble taking care of your child, family member or friend?: No Do you have trouble with day-to-day activities such as bathing, preparing meals, shopping, managing finances, etc.?: No Are you currently unemployed and looking for a job?: No Are you interested in more education?: No Please select the resources that you would like help with: None Currently or been in a relationship where the following occur: No concerns reported THRIVE Score: 0 IRASEMA-7 AMB Questionnaire IRASEMA-7 Date IRASEMA - 7 assessed: 05/10/25 Feeling nervous, anxious, or on edge: 1 = Several days Not being able to stop or control worryin = Not at all Worrying too much about different things: 1 = Several days Trouble relaxin = Several days Being so restless that it is hard to sit still: 0 = Not at all Becoming easily annoyed or irritable: 1 = Several days Feeling afraid as if something awful might happen: 0 = Not at all Total IRASEMA-7 score (0-4 normal; 5-9 mild; 10-14 moderate; 15-21 severe): 4 Source: Developed by Drs. Schuyler Rivera, Nelda Tobin, Carroll Salgado and colleagues, with an educational adriano from [employer]. Review of Systems Const Denies body aches, Denies fatigue, Denies fever(s), Denies headache(s) and Denies weakness Eyes Details: Goes to [facility], wears glasses for reading and distance ENT Denies dizziness, Denies headache(s) and Denies nasal congestion Card Denies chest pain, Denies lightheadedness, Denies palpitations and Denies dyspnea Resp Denies chest congestion, Denies cough, Denies dyspnea and Denies wheezing GI Reports as per HPI, Denies abdominal pain, Denies melena, Denies hematochezia and Denies change in bowel habits Denies hematuria, Denies urinary frequency, Denies dysuria and Denies urinary urgency Musc Reports no additional complaints Skin/Breast Denies breast pain, Denies breast mass and Denies rash Neuro Denies dizziness, Denies headache(s) and Denies weakness Psych Reports no additional complaints Endo Denies fatigue, Denies polydipsia, Denies polyuria and Denies palpitations Primo/Lymph Reports no additional complaints Aller/Immun Denies seasonal rhinorrhea and Denies wheezing Physical exam (Primary Care) Vital Signs: Last Vital Signs Temp 98.1 F 05/10/25 09:01 Pulse 77 05/10/25 09:01 Resp 16 05/10/25 09:01 BP 114/84 05/10/25 09:01 Pulse Ox 98 05/10/25 09:01 Oxygen Delivery Method Room Air 05/10/25 09:01 BMI result Body Mass Index 27.8 Tobacco/Smoking Status: Tobacco use Status Tobacco use date assessed 05/10/25 05/10/25 08:53 Patient Tobacco Use Status Former Tobacco user 05/10/25 08:53 e-Cigarette/Vaping Use Never Used 05/10/25 08:53 Thrive Assessment: Date of Thrive Assessment Date Thrive assessed 01/07/25 05/10/25 08:53 Currently or been in a relationship where the following occur: No concerns reported Date of discussion: 05/10/25 Who was present: Patient Forms completed: Health Care Proxy Time spent: 16-45 minutes Actual minutes spent: 3 Const General: comfortable and no acute distress Orientation/consciousness: patient oriented x3 HENMT Ears: EAC's normal General nose exam: Normal external nose present Face and sinus: Yes face symmetric Mouth: Normal oral and palatal mucosa present, oropharynx normal and moist mucous membranes Eyes General: appearance normal, both eyes and all related structures Neck Neck: Yes full ROM, Yes no lymphadenopathy and Yes supple Chest Breast/axilla palpation: normal palpation of the breasts Resp Effort & Inspection: normal respiratory effort and able to speak in complete sentences Auscultation: clear to auscultation bilaterally Cardio Rate: regular rate Rhythm: regular rhythm Heart sounds: S1 normal heart sound present and S2 normal heart sound present GI Inspection: Yes normal to inspection Palpation (GI): Soft to palpation, nontender, no guarding and Palpable mass present Auscultation: normal bowel sounds General: Yes no CVA tenderness and Yes deferred (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) Back/Spine/Pelvis Back: no CVA tenderness and No back tenderness Skin General skin exam: no rashes or lesions noted Neuro General: patient oriented x3 Extrem General: Yes full ROM, Yes no joint enlargement, Yes no clubbing, cyanosis or edema, Yes no calf tenderness and Yes normal gait Psych Appearance: grossly normal and well kempt Mental Status: mental status grossly normal Speech and movement: Normal speech and movement present Affect: normal affect Results Reviewed Results Reviewed: Name: Sarthak Age/Sex: 50/F : 1975 Unit#: [id number] Attend Dr: Henny Piña MD Re05/04/25 Status: DEP REF [facility] Disch: SPEC : [id number] PAULINO: 05/04/25 STATUS: COMP REQ : [id number] RECD: 05/04/[address]: Henny Piña MD COMP: 05/04/25 ENTERED: 05/04/[address]: ORDERED: Liver Panel, Lipid Panel Test Result Flag Reference Total Bili 0.3 0.0-1.0 mg/dL Direct Bili 0.1 0.0-0.5 mg/dL AST (GOT) 31 5-31 U/L ALT (GPT) 43 H 0-31 U/L Protein, Total 6.6 6.5-8.0 g/dL Alb 4.5 3.5-5.0 g/dL Triglyceride 191 H <150 mg/dL Desirable Triglyceride: less than 150 mg/dL Borderline High Triglyceride 150-199 mg/dL High Triglyceride: 200-499 mg/dL Very High Triglyceride: greater than or equal to 5OO mg/dL Cholesterol 239 H <200 mg/dL Desirable Cholesterol: less than 200 mg/dL Borderline High Cholesterol: 200-239 mg/dL High Cholesterol: greater than 239 mg/dL LDL Calculated 157 H <100 mg/dL Desirable LDL: less than 100 mg/dL Near Optimal/Above Optimal LDL: 110-129 mg/dL Borderline High LDL: 130-159 mg/dL High LDL: 160-189 mg/dL Very High LDL: greater than or equal to 190 mg/dL HDL 44 >40 mg/dL Desirable HDL: greater than 40 mg/dL Note: This HDL assay may give artificially low results in patients with liver disease. Alk Phos 32 L 39-117 U/L Coding Level of Care Code Est Pt Prev Care 40-64y(62603) Diagnoses Mixed dyslipidemia E78.2 GERD (gastroesophageal reflux disease) K21.9 History of adenomatous polyp of colon Z86.0101 Advanced directives, counseling/discussion Z71.89 Annual visit for general adult medical examination with abnormal findings Z00.01 Acute anxiety F41.9 Additional Codes Vital Signs *Quality* - Time spent: 16-45 minutes ([id number]) Assessment & Plan Assessment & Plan (1) Mixed dyslipidemia: Code(s): E78.2 - Mixed hyperlipidemia Category: Medical Plan: Improving triglyceride levels, but still not at goal less than 150, continue with fenofibrate 130 mg daily in addition to [place] 3 fatty acid supplements 2 capsules twice a day and adherence to healthy eating habits and regular exercise. Repeat fasting lipids in November 2025 (2) GERD (gastroesophageal reflux disease): Code(s): K21.9 - Gastro-esophageal reflux disease without esophagitis Category: Medical Plan: Continue pantoprazole 40 mg daily (3) History of adenomatous polyp of colon: Code(s): Z86.0101 - Personal history of adenomatous and serrated colon polyps Plan: Repeat colonoscopy due again in [address] Vora (4) Advanced directives, counseling/discussion: Code(s): Z71.89 - Other specified counseling Plan: Initiated the conversation about Advanced Directives. Advanced Directives help patients prepare for current and future decisions about their medical treatment and place of care. Discussed with patient that it is a process where a patients current condition and prognosis are reviewed, their wishes for information regarding their illness are elicited, and likely medical dilemmas are presented and options discussed. Healthcare proxy form needs today The form can be amended as needed, reviewed yearly and make changes as needed (5) Annual visit for general adult medical examination with abnormal findings: Code(s): Z00.01 - Encounter for general adult medical examination with abnormal findings Plan: Recent fasting labs reviewed with patient. Continue with regular dental prophylaxis every 6 months and sees [facility] for her routine eye exam. Currently up-to-date. Up-to-date with her screening mammogram, goes to [facility], goes to OBGYN at [facility] for her routine Pap and pelvic exam, last done in 2021. Screening colonoscopy due again with Dr. Vora in 2026. (6) Acute anxiety: Code(s): F41.9 - Anxiety disorder, unspecified Plan: Prescription sent for hydroxyzine HCl 10 mg per tablet to take 1 tablet at bedtime as needed for acute anxiety attacks/insomnia. Patient cautioned that this medicine can cause drowsiness, do not take when driving Orders: Orders Lipid Panel 11/04/25 E78.2 - Mixed hyperlipidemia, Z86.39 - Personal history of other endocrine, nutritional and metabolic disease Vitamin D 25-OH Total 11/04/25 E78.2 - Mixed hyperlipidemia, Z86.39 - Personal history of other endocrine, nutritional and metabolic disease Alanine Aminotransferase 11/04/25 E78.2 - Mixed hyperlipidemia, Z86.39 - Personal history of other endocrine, nutritional and metabolic disease Aspartate Amino Transferase 11/04/25 E78.2 - Mixed hyperlipidemia, Z86.39 - Personal history of other endocrine, nutritional and metabolic disease Medications: New hydroxyzine HCl 10 mg PO BEDTIME PRN 30 tabs 0RF Acute anxiety/insomnia Refilled fenofibrate micronized 130 mg PO BEDTIME 90 caps 4RF E78.2 - Mixed hyperlipidemia
[2025-05-10 09:01] VITALS: BP 114/84; PULSE 77; RESP 16; TEMP 36.7; O2SAT 98; BMI 27.8
== END 2025-05-10 10:10 | disposition home or self-care (01) ==
LOC: HO.HMCC 08:28
PROVIDERS: PCP Internal Medicine; Visit Provider Internal Medicine
DX: Z00.01 Encounter for general adult medical examination with abnormal findings (principal); E78.2 Mixed hyperlipidemia; K21.9 Gastro-esophageal reflux disease without esophagitis; Z86.0101 Personal history of adenomatous and serrated colon polyps; Z71.89 Other specified counseling; F41.9 Anxiety disorder, unspecified

== ENCOUNTER 2025-05-27 09:03 | Outpatient (AMB) | payer OTHER, SELFPAY ==
--- NOTE | 2025-05-27 09:05 | A.OFFVIS_ITS ---
Vital Signs 05/27/25 09:13 Height 5 ft 1 in Weight 143 lb BMI 27.0 BP 119/70 Blood Pressure Location Lt brachial Position Sitting Pulse 76 Pulse Oximetry (%) 96 Oxygen Delivery Method Room Air Intake Visit Reasons: 1 year follow up Intake Note: Patient yearly follow up for Constipation. Patient cc: heartburn, abdominal bloating. Denies any other GI issues for today viist. Fluid Jet Cutter Operator Required: No Accompanied by: Self / Same As Patient Allergies fluticasone (From Flonase) Adverse Reaction (Severe, Verified 05/27/25 09:08) eyes burning amoxicillin Adverse Reaction (Verified 05/27/25 09:08) Vomiting Penicillins Adverse Reaction (Verified 05/27/25 09:08) rash Sulfa (Sulfonamide Antibiotics) Adverse Reaction (Verified 05/27/25 09:08) Anaphylaxis Tetracyclines Adverse Reaction (Verified 05/27/25 09:08) Vomiting Medication List - Last Reconciled 05/27/25 by Graeme Vora MD [B12 500 mcg PO DAILY] famotidine 40 mg PO BEDTIME fenofibrate micronized 130 mg PO BEDTIME hydroxyzine HCl 10 mg PO BEDTIME PRN levonorgestrel (Mirena) 1 device intrauterine DIRECTED loratadine (Claritin) 10 mg PO DAILY multivitamin tabs omega-3 acid ethyl esters (Lovaza) 2 caps PO BID 30 days pantoprazole 40 mg PO DAILY [Probiotic 1 PO DAILY] tretinoin 0.025% appl topical HPI HPI 1 year follow up: Details: GI clinic visit for this 50 year old female with hyperlipidemia and history of cervical cancer for FU of colon polyps to discuss colonoscopy results TODAY'S VISIT: Patient cc: heartburn, abdominal bloating. 50-year-old female presenting with worsening gastroesophageal reflux disease (GERD) symptoms. Initially diagnosed a decade ago and treated with omeprazole, her condition recently exacerbated with the medication losing efficacy. She now experiences prominent acid regurgitation, particularly postprandially and at night. Additional use of famotidine at bedtime was introduced to manage these symptoms. Dietary triggers like onions and acidic foods worsen her condition. Her bowel function fluctuates between constipation and normalcy without a distinct correlation to her GERD, though different body positions can exacerbate symptoms. Undergoing dietary adjustments for weight management has been challenging due to her GERD. Nocturnal symptoms often improve by abstaining from late meals. Other concerns include menopausal symptoms, such as night sweats, and occasional neck- related dysphagia, distinct from her primary GERD issue. The patient was advised to follow a Mediterranean diet, prescribed for weight loss and cholesterol management. Despite her efforts, this dietary approach often includes foods triggering her GERD, such as onions and acidic fruits. Historically gaining approximately ten pounds over the last three years, she avoids eating late to manage nocturnal reflux. Additionally, she supplements her treatment with medications including pantoprazole and famotidine. PAST VISITS: Pt reports bad heartburn and has been on Omeprazole x 5 yrs. Tried famotidine which did not work. Patient denies symptoms of dysphagia, nausea, vomiting, change in appetite or weight. Has a BM 1-2 times a week. Goes the whole day and can have diarrhea. Has fibre pills and forgets to take them. Patient denies known family history of colon polyps, colon cancer or other GI malignancies. [place] [facility] [place] due to [place] (crippled due to multiple strokes after he had a brain tumor removed complicated by a subdural hematoma) LABS [facility] [employer] : Reviewed IMAGING STUDIES: No recent GI imaging studies ENDOSCOPIC STUDIES: 05/15/24 COLONOSCOPY SHOWED: Colonoscopy Findings: Three small and one medium sized polyps were removed Moderate to severe diverticulosis seen in the left colon Plan: Repeat Colonoscopy in 3-5 years if polyps are adenomatous and 10 year if polyps are hyperplastic. BIOPSIES SHOWED: A. Colon, ascending, polypectomy: Colonic mucosa with mild surface hyperplastic changes. B. Cecum, polypectomy: Food/vegetable material only; no colonic tissue identifie d. C. Colon, proximal ascending, polypectomy: Fragments of sessile serrated lesion/polyp; negative for cytologic dysplasia. D. Rectum, polypectomy: Hyperplastic mucosal polyp [facility] Medical History Muscle strain of right ankle Hx of herpes zoster Mixed dyslipidemia Hx of cervical cancer History of COVID-19 Surgical History Hx of colonoscopy Hx of hernia repair Hx of section Hx of tonsillectomy Family History Mother Anxiety Migraine Sister Mental health disorder Father Prostate cancer Paternal Uncle Colon cancer Skin cancer (melanoma) Social History Household Members Other:: 2 daughters, 1 grandson- Housing: Apartment Patient Tobacco Use Status: Former Tobacco user e-Cigarette/Vaping Use: Never Used service: No Current occupational status: employed Cognitive needs: No Hearing needs: No Vision needs: Yes Review of Systems Const Denies fever(s), Reports headache(s) and Denies weight loss Eyes Denies eye discharge and Denies irritation ENT Reports Normal hearing present, Reports dysphagia (painful swallowing), Denies dizziness and Reports headache(s) Card Denies chest pain, Denies leg edema and Denies dyspnea on exertion Resp Reports cough, Denies dyspnea on exertion and Denies wheezing GI Denies abdominal pain, Reports bloating, Denies change in bowel habits, Reports constipation, Reports dysphagia (painful swallowing) and Reports heartburn Denies difficulty voiding, Denies dysuria and Reports other (Frequent urination) Musc Denies back pain, Reports arthralgias and Reports other (arthritis) Skin/Breast Denies pruritus, Denies rash and Denies jaundice Neuro Reports Normal hearing present, Denies Abnormal speech present, Denies dizziness, Reports headache(s) and Denies seizure-like activity Psych Reports anxiety, Denies depression and Denies panic attacks Endo Denies cold intolerance, Denies flushing and Denies heat intolerance Primo/Lymph Denies easy bleeding and Denies easy bruising Aller/Immun Denies wheezing Physical Exam Vital Signs: Last Vital Signs Pulse 76 05/27/25 09:13 BP 119/70 05/27/25 09:13 Pulse Ox 96 05/27/25 09:13 Oxygen Delivery Method Room Air 05/27/25 09:13 BMI result Body Mass Index 27.0 Const General: healthy appearing and no acute distress Nutritional Appearance: overweight Orientation/consciousness: patient oriented x3 Limitations: no limitations HEENT Head: Yes normal to inspection Ears: hearing grossly normal bilaterally Eyes Sclerae: sclerae normal Pupils: Equal, round and reactive pupils present Neck Neck: Yes normal visual inspection Chest Chest palpation & inspection: normal inspection of the chest Resp Effort & Inspection: normal respiratory effort Auscultation: clear to auscultation bilaterally Cardio Palpation: normal PMI Rate: regular rate Rhythm: regular rhythm Heart sounds: S1 normal heart sound present, S2 normal heart sound present and no murmurs GI Palpation (GI): Soft to palpation, nontender and No hepatosplenomegaly present Auscultation: normal bowel sounds Rectal Exam - Female: deferred Skin General skin exam: no rashes or lesions noted Neuro General: patient oriented x3, gait normal and moves all extremities Cranial nerves: Yes Equal, round and reactive pupils present and Yes Normal hearing present Speech: No Abnormal speech present Psych Appearance: grossly normal Mental Status: mental status grossly normal Assessment & Plan Assessment & Plan (1) Sessile colonic polyp: Comment: 05/2024 Three small and one medium sized polyps were removed during colonoscopy Moderate to severe diverticulosis seen in the left colon Plan: Repeat Colonoscopy advised in 3 since biopsies from the medium sized polyps showed sessile serrated lesion Code(s): K63.5 - Polyp of colon Category: Medical (2) Diverticulosis of colon: Comment: The ER protocol-discussed Literature given- Maintain high-fiber diet Foods to avoid Code(s): K57.30 - Diverticulosis of large intestine without perforation or abscess without bleeding Category: Medical (3) GERD (gastroesophageal reflux disease): Code(s): K21.9 - Gastro-esophageal reflux disease without esophagitis Category: Medical (4) Dysphagia, pharyngoesophageal phase: Code(s): R13.14 - Dysphagia, pharyngoesophageal phase Category: Medical Plan 50 year old female with hyperlipidemia and history of cervical cancer followed in GI for GERD, constipation and colon polyps Pt advised to continue Omeprazole 20 mg daily and take Senna prn for constipation Pt had requested to add an EGD to her last colon appt which was not approved by her insurance. She is requesting to have an EGD (for FU of GERD) with her next colon 05/27/25 patient advised to schedule a barium swallow and an upper endoscopy for evaluation of worsening GERD symptoms. Continue pantoprazole in the morning and famotidine 40 mg at bedtime. Anti-reflux measures were reviewed with the patient. FU in 3 months - scheduled 08/26/25 Orders: Orders [place] barium swallow Today K21.9 - Gastro-esophageal reflux disease without esophagitis, R13.14 - Dysphagia, pharyngoesophageal phase Coding Level of Care Code Est Pt Level 4 (87869) Diagnoses Sessile colonic polyp K63.5 Diverticulosis of colon K57.30 GERD (gastroesophageal reflux disease) K21.9 Dysphagia, pharyngoesophageal phase R13.14 Time Spent (min) 22
[2025-05-27 09:13] VITALS: BP 119/70; PULSE 76; O2SAT 96; BMI 27.0
--- OUTSIDE RECORDS SUMMARY | 2025-05-27 09:30 | XMS_ITS | Encounter Summary ---
Author Organization [facility] Address [address] [place] [address] Care Team Providers Care Patch Press Operator Name Role Phone Cheri Horner MD Primary Care Provider [phone] Reason for Visit * Reason Onset Date Comments Orders Call 03/27/2017 ETT Encounter Details Date Type Department Care Team Description 03/27/2017 Telephone Cardiology - [address] [id number] Karina Murdock PA Orders Call (ETT) Social History Tobacco Use Types Packs/Day Years Used Date Smoking Tobacco: Former Cigarettes Q uit: 10/13/2001 Smokeless Tobacco: Never Alcohol Use Standard Drinks/Week Comments Yes 0 (1 standard drink = 0.6 oz pur e alcohol) occ beer and wine Alcohol Habits Answer Date Recorded How often do you have a drink containing alcohol ? Monthly or less 04/12/2020 How many drinks containing a lcohol do you have on a typical day when you are drinking? Not asked How often do you have six or more drinks on one occasion? Not asked Sex Assigned at Date Recorded Female 12/23/2023 11:33 AM EST Job Start Date Occupation Industry Not on file Not on file Not on file documented as of this encounter Miscellaneous Notes * Telephone Encounter - Karina Josue PA-C - 03/27/2017 2:32 PM EDT [employer]. I discussed this with Dr. Terrell and we would like to go forward with the ETT. Thank you - Karina * Telephone Encounter - Bing Norwood L.P.N. - 03/27/2017 8:15 AM EDT Hi Karina You ordered an ETT in February and pt has not been scheduled. She had very vague sx's related to eating , and she has had no further complaints. Can we cancel the ETT order? Thank you, Bing documented in this encounter Plan of Treatment Not on file documented as of this encounter Visit Diagnoses Not on filedocumented in this encounter Care Teams Patch Press Operator Relationship Specialty Start Date End Date Cheri Horner MD [address] [place] [id number] PCP - General 12/25/04 documented as of this encounter
--- OUTSIDE RECORDS SUMMARY | 2025-05-27 09:30 | XMS_ITS ---
Author Name [facility] Organization Unknown Care Team Organization Name Specialty Phone Email Start Date End Da te [facility] Cheri Horner Primary Care 09/11/2022 4
--- OUTSIDE RECORDS SUMMARY | 2025-05-27 09:31 | XMS_ITS | Clinical Summary ---
Author Organization [facility] [address] [place] [address] [place] [address] Phone Care Team Providers Care County Coroner Name Role Phone Cheri Horner MD Primary Care Provider [phone] Allergies Active Allergy Reactions Criticality Noted Date [...] 01/21/2006 Overview (11/05/2024): age 21, laser treatment Encounters Date Type Department Care Team Description 05/17/2025 9:26 AM EDT - 05/17/2025 11:59 PM EDT Hospital Encounter Radiology Department - [address] [phone] Unspecified lump in unspecified breast Discharge Disposition: Home or Self Care 05/17/2025 9:13 AM EDT - 05/17/2025 11:59 PM EDT Hospital Encounter Radiology Department - [address] [phone] Encounter for screening mammogram for breast cancer Discharge Disposition: Home or Self Care from Last 3 Months Immunizations Name Administration Dates Next Due Hepatitis B (Ztsilqk-X-Njhgo , Recombivax HB-Adult) 19yo and older 01/17/2010,08/19/2009,07/20/2009 [...] History Surgery Date Site/Laterality Comments SECTION PROCEDURE: ME DELIVERY ONLY; COMMENT: x1. TONSILLECTOMY PROCEDURE: HISTORICAL TONSILLECTOMY; COMMENT: age 18 HERNIA REPAIR PROCEDURE: HISTORICAL HERNIA REPAIR/ING; COMMENT: age 1; bilateral CERVICAL BIOPSY W/ LOOP ELECTRODE EXCISION 1995 PROCEDURE: ME CONIZATION CERVIX W/WO D&C RPR ELTRD EXC [...] Father Diabetes Maternal Grandmother ag e 72 [place], cataract Colon polyps Mother osteoporosis Kidney failure [...] Sexual Orientation Not on file Obstetrics History Para Term AB IAB SAB Ectopic Multiple Livin g Live Births 2 2 2 2 Date Outcome GA Total Labor Labor/2nd/3rd Weight Sex Type Anes PTL Ana A1 A5 Name Clin Term Term Last Filed Vital Signs Vital Sign Reading [...] Care Team (Late st Contact Info) Description 07/07/2025 8:45 AM EDT Office Visit Obstetrics and Gynecology - [address] [phone] Cassy Melendez CNM [address] [place] [address] 09/16/2025 2:00 PM EST Office Visit Obstetrics and Gynecology - [address] [phone] Lianna Jordan CNM [address] [place] [address] Health Maintenance Due Date Last Done Comments Colorectal Cancer Screening: Colonoscopy 10/13/2022 HIV Screening 10/13/2022 Hepatitis C Screening 10/13/2022 Social Influencers of Health Screening 10/13/2022 Pneumococcal Vaccine: 50+ Years (1 of 1 - PCV) 2024 Zoster Vaccines (1 of 2) 2024 COVID-19 Vaccine (4 - 2023- season) 2024 09/24/2021, 03/04/2021, 02/04/2021 Depression Screening 11/04/2024 Influenza Vaccine (#1) 2025 , 07/15/2023, 08/10/2022, Additional history exists Breast Cancer Screening 05/17/2027 05/17/20, 04/24/2024, 04/24/2024, Additional history exists Cervical Cancer Screening: HPV 12/26/2028 12/26/2023 DTaP,Tdap,and Td Vaccines (4 - Td or Tdap) 09/01/2031 09/01/2021, 07/24/2011, 10/24/2004 MMR Vaccines Aged Out 07/27/2009 No longer [...] Procedure Name Priority Date/Time Associated Diagnosis Comments US BREAST LIMITED RIGHT Routine 05/17/2025 9:34 AM EDT Unspecified lump in unspecified breast MG MAMMO DIGITAL SCREENING W PETE BILAT Routine 05/17/2025 9:30 AM EDT Encounter for screening mammogram for breast cancer HM HPV Routine 12/26/2023 from Last 3 Months or Most Recently Relevant to Health Maintenance Results * US Breast Limited Right (05/17/2025 9:34 AM EDT) Anatomical Region Laterality Modality Breast Right Ultrasound 05/17/2025 9:38 AM EDT Impressions 05/17/2025 9:41 AM EDT Benign-appearing cyst at the 9 o'clock position of the right breast. No further follow-up needed. BI-RADS CATEGORY: 2 - BENIGN RECOMMENDATION: No follow-up right breast imaging recommendations. ULTRASOUND LOCATION: [facility], [address] [place] [address], [id number], . -------- FINAL REPORT -------- Dictated By: Brooke Thompson Dictated Date: 05/17/2025 09:38 ET Assigned Physician: Brooke Thompson Reviewed and Electronically Signed By: Brooke Thompson Signed Date: 05/17/2025 09:41 ET Workstation ID: [id number] Transcribed By: Self Edit Transcribed Date: 05/17/2025 09:38 ET Narrative 05/17/2025 9:41 AM EDT EXAM: Right breast ultrasound CLINICAL: 50 years old, Female, two-year follow-up of a probably benign cystic lesion at the 9 o'clock position of the right breast. COMPARISON: 04/24/2024, 11/11/2023, and 05/10/2023 FINDINGS: No significant interval change in the size of the cystic lesion at the 9 o'clock position, 3 cm from the nipple, which measures 0.7 x 0.5 x 0.2 cm. Previously seen internal echoes have resolved and the lesion has the appearance of a simple cyst. No further follow-up needed. Procedure Note Donna, , MD - 05/17/2025 EXAM: Right breast ultrasound CLINICAL: 50 years old, Female, two-year follow-up of a probably benigncystic lesion at the 9 o'clock position of the right breast. COMPARISON: 04/24/2024, 11/11/2023, and 05/10/2023 FINDINGS: No significant interval change in the size of the cystic lesion at the 9o'clock position, 3 cm from the nipple, which measures 0.7 x 0.5 x 0.2 cm.Previously seen internal echoes have resolved and the lesion has theappearance of a simple cyst. No further follow-up needed. IMPRESSION: Benign-appearing cyst at the 9 o'clock position of the right breast. Nofurther follow-up needed. BI-RADS CATEGORY: 2 - BENIGN RECOMMENDATION: No follow-up right breast imaging recommendations. ULTRASOUND LOCATION: [facility], [address] [place] [address], [id number], . -------- FINAL REPORT -------- Dictated By: Brooke Thompson Dictated Date: 05/17/2025 09:38 ET Assigned Physician: Brooke Thompson Reviewed and Electronically Signed By: Brooke Thompson Signed Date: 05/17/2025 09:41 ET Workstation ID: [id number] Transcribed By: Self Edit Transcribed Date: 05/17/2025 09:38 ET us Nai Harris [facility] IMG US PROCEDURES Final R esult * MG Mammo Digital Screening w Pete bilat (05/17/2025 9:30 AM EDT) Anatomical Region Laterality Modality Breast Bilateral Mammography 05/18/2025 5:39 PM EDT Impressions 05/18/2025 5:44 PM EDT 1. No mammographic evidence of malignancy 2. Heterogeneous breast parenchyma BI-RADS CATEGORY: 2 - BENIGN RECOMMENDATION: Screening bilateral mammogram is recommended in 1 year. Mammo Location: [facility], [address] [place] [address], [phone], . -------- FINAL REPORT -------- Dictated By: Keyanna Capps Dictated Date: 05/18/2025 17:39 ET Assigned Physician: Keyanna Capps Reviewed and Electronically Signed By: Keyanna Capps Signed Date: 05/18/2025 17:44 ET Workstation ID: [id number] Transcribed By: Self Edit Transcribed Date: 05/18/2025 17:39 ET Narrative 05/18/2025 5:44 PM EDT A BILATERAL DIGITAL 3D SCREENING MAMMOGRAPHY HISTORY: Routine screening. No family history of breast cancer. COMPARISON: Multiple priors dating back to 03/01/2022 Technique: Bilateral full field digital mammography (3D) was performed using standard CC and MLO projections CAD was used to evaluate this mammogram. FINDINGS: Right: No suspicious masses, groups of microcalcification or areas of architectural distortion identified. Stable typically benign parenchymal asymmetries. Left: No suspicious masses, groups of microcalcification or areas of architectural distortion identified. Stable typically benign parenchymal asymmetries. BREAST DENSITY: C - The breasts are heterogeneously dense which may obscure small masses. Procedure Note Keyanna Capps MD - 05/18/2025 A BILATERAL DIGITAL 3D SCREENING MAMMOGRAPHY HISTORY: Routine screening. No family history of breast cancer. COMPARISON: Multiple priors dating back to 03/01/2022 Technique: Bilateral full field digital mammography (3D) was performedusing standard CC and MLO projections CAD was used to evaluate this mammogram. FINDINGS: Right: No suspicious masses, groups of microcalcification or areas ofarchitectural distortion identified. Stable typically benign parenchymalasymmetries. Left: No suspicious masses, groups of microcalcification or areas ofarchitectural distortion identified. Stable typically benign parenchymalasymmetries. BREAST DENSITY: C - The breasts are heterogeneously dense which mayobscure small masses. IMPRESSION: 1. No mammographic evidence of malignancy 2. Heterogeneous breast parenchyma BI-RADS CATEGORY: 2 - BENIGN RECOMMENDATION: Screening bilateral mammogram is recommended in 1 year. Mammo Location: [facility], [address] [place] [address], [phone], . -------- FINAL REPORT -------- Dictated By: Keyanna Capps Dictated Date: 05/18/2025 17:39 ET Assigned Physician: Keyanna Capps Reviewed and Electronically Signed By: Keyanna Capps Signed Date: 05/18/2025 17:44 ET Workstation ID: [id number] Transcribed By: Self Edit Transcribed Date: 05/18/2025 17:39 ET Cheri Horner MD IMG BI PROCEDURES Final Result * Cervical Cancer Screening: HPV (12/26/2023) Cervical Cancer Screening: HPV Abstracted ,negative Historical Provider HEALTH MAINTENANCE Final Result from Last 3 Months or Most Recently Relevant to Health Maintenance Insurance [employer] Care Teams County Coroner Relationship Specialty Start Date End Date Cheri Horner MD [address] [place] [address] PCP - General 12/25/04
== END 2025-05-27 09:33 | disposition home or self-care (01) ==
LOC: HO.HGI 09:04
PROVIDERS: PCP Internal Medicine; Visit Provider Internal Medicine Gastroenterology
DX: K63.5 Polyp of colon (principal); K57.30 Diverticulosis of large intestine without perforation or abscess without bleeding; K21.9 Gastro-esophageal reflux disease without esophagitis; R13.14 Dysphagia, pharyngoesophageal phase
CPT/HCPCS: 99214

== ENCOUNTER 2025-09-17 09:04 | Outpatient (REF) | payer OTHER, SELFPAY ==
--- NOTE | ~2025-09-17 | FL_ITS ---
EXAMINATION: XR BARIUM SWALLOW CLINICAL INFORMATION: Gastroesophageal reflux disease without esophagitis. COMPARISON: None available. TECHNIQUE: Routine upright barium swallow with thick barium and saltine crackers was performed. Thin barium was administered in prone lying position. FINDINGS: Following oral administration of thick barium there is normal propagation of bolus from the oral cavity, pharynx, esophagus into stomach without obstruction, narrowing or stricture. The course, caliber and peristalsis of the esophagus is normal. On oral administration of crackers coated with barium paste there is normal oral mastication and propagation bolus from the oral cavity into the midesophagus. Thin barium was administered to clear solid food through the mid and distal esophagus. However no obstruction or stricture seen On placing patient prone lying and oral administration of thin barium there is normal propagation of bolus from the oral cavity through the pharynx, esophagus into stomach without any evidence of obstruction, narrowing or stricture the course, caliber and peristalsis in stomach and the duodenal bulb is normal. There is no gastroesophageal reflux or hiatal hernia. FLUOROSCOPY TIME: 1 minute 42 seconds DOSE AREA PRODUCT: 831.4 uGy-m2 (microgray-meter squared) FL/FL barium swallow IMPRESSION: Unremarkable barium swallow exam. Electronically signed by: Rocael Yao MD 09/17/2025 03:48 PM EST
--- OUTSIDE RECORDS SUMMARY | 2025-09-17 09:39 | XMS_ITS | Clinical Summary ---
Author Organization [facility] [address] [facility] Address [address] [place] [address] Phone Care Team Providers Care Cook House Laborer Name Role Phone Cheri Horner MD Primary Care Provider [phone] Allergies Active Allergy Reactions Criticality Noted Date [...] AM EDT Office Visit Obstetrics and Gynecology [address] [phone] Cassy Melendez, LUPE Menopausal symptoms (Primary Dx); IUD check up from Last 3 Months Immunizations Immunization Administration Dates Next Due Hepatitis B (Lsbordh-L-Ezewh , Recombivax HB-Adult) 19yo and older 01/17/2010,08/19/2009,07/20/2009 [...] History Surgery Date Site/Laterality Comments SECTION PROCEDURE: [place] DELIVERY ONLY; COMMENT: x1. TONSILLECTOMY PROCEDURE: HISTORICAL TONSILLECTOMY; COMMENT: age 18 HERNIA REPAIR PROCEDURE: HISTORICAL HERNIA REPAIR/ING; COMMENT: age 1; bilateral CERVICAL BIOPSY W/ LOOP ELECTRODE EXCISION 1995 PROCEDURE: AL CONIZATION CERVIX W/WO D&C RPR ELTRD EXC [...] Father Diabetes Maternal Grandmother ag e 72 [place], cataract Colon polyps Mother osteoporosis Kidney failure [...] Years Used Date Smoking Tobacco: Former Cigarettes 0 Q uit: 10/13/2001 Smokeless Tobacco: Never Alcohol [...] care for your loved ones. For example, early childhood or elderly care for an older adult? [...] Care Team (Late st Contact Info) Description 10/11/2025 9:30 AM EST Office Visit Obstetrics & Gynecology - [address] [phone] Cassy Melendez, LUPE [address] [place] [address] Health Maintenance Due Date Last Done Comments [...] Completed 01/17/2010, 08/19/2009, 07/20/2009 Depression Screening Completed 09/15/2025 HIB Vaccines Aged Out No longer eligi [...] is recommended in 1 year. Mammo Location: [facility], [address] [place] [address], [address], . -------- FINAL REPORT -------- Dictated By: Keyanna Capps Dictated Date: 05/18/2025 17:39 ET Assigned Physician: Keyanna Capps Reviewed and Electronically Signed By: Keyanna Capps Signed Date: 05/18/2025 17:44 ET Workstation ID: [id number] Transcribed By: Self Edit Transcribed Date: 05/18/2025 [...] is recommended in 1 year. Mammo Location: [facility], [address] [place] [address], [address], . -------- FINAL REPORT -------- Dictated By: Keyanna Capps Dictated Date: 05/18/2025 17:39 ET Assigned Physician: Keyanna Capps Reviewed and Electronically Signed By: Keyanna Capps Signed Date: 05/18/2025 17:44 ET Workstation ID: [id number] Transcribed By: Self Edit Transcribed Date: 05/18/2025 17:39 ET Cheri Horner MD IMG BI PROCEDURES Final Result * Cervical Cancer Screening: HPV (12/26/2023) Cervical Cancer Screening: HPV Abstracted ,negative Historical Provider HEALTH MAINTENANCE Final Result from Last 3 Months or Most Recently Relevant to Health Maintenance Insurance [employer] Care Teams Cook House 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
== END 2025-09-17 09:05 | disposition home or self-care (01) ==
LOC: HO.XRAY 09:04
PROVIDERS: PCP Internal Medicine; Visit Provider Internal Medicine Gastroenterology
DX: R13.14 Dysphagia, pharyngoesophageal phase (principal); K21.9 Gastro-esophageal reflux disease without esophagitis
CPT/HCPCS: 74220

== ENCOUNTER → 2025-09-17 09:05 | Outpatient (BNV) | payer OTHER, SELFPAY | PROVIDERS: PCP Internal Medicine; Visit Provider Radiology Diagnostic Radiology | DX: K21.9 Gastro-esophageal reflux disease without esophagitis (principal) | CPT/HCPCS: 74221 ==

== ENCOUNTER 2025-10-15 10:49 | Day surgery (SDC) | payer OTHER, SELFPAY ==
--- OUTSIDE RECORDS SUMMARY | 2025-09-09 09:47 | XMS_ITS | Clinical Summary ---
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 Active omeprazole (PriLOSEC) [address] capsule Take 10 mg by mouth daily. Active estradioL (ESTRACE) 0.01 % (0.1 mg/gram) vaginal cream Apply 1gm pv daily x1wk then twice wkly for maintenance 42.5 g 3 5 Active estradioL (ESTRACE) 1 mg tablet Take 1 tablet (1 mg total) by mouth 1 (one) time each day. 90 tablet 3 5 07/07/20 26 Active Active Problems Problem Noted Date Diagnosed Date GERD (gastroesophageal reflux disease) 7 Abnormal Pap smear of cervix 01/21/2006 Overview (11/05/2024): age 21, laser treatment Encounters Date Type Department Care Team Description 07/07/2025 8:45 AM EDT Office Visit Obstetrics and Gynecology [address] [phone] Cassy Melendez, LUPE Menopausal symptoms (Primary Dx); IUD check up from Last 3 Months Immunizations Immunization Administration Dates Next Due Hepatitis B (Ttamvov-Y-Yjxch , Recombivax HB-Adult) 19yo and older 01/17/2010,08/19/2009,07/20/2009 [...] History Surgery Date Site/Laterality Comments SECTION PROCEDURE: [place] DELIVERY ONLY; COMMENT: x1. TONSILLECTOMY PROCEDURE: HISTORICAL TONSILLECTOMY; COMMENT: age 18 HERNIA REPAIR PROCEDURE: HISTORICAL HERNIA REPAIR/ING; COMMENT: age 1; bilateral CERVICAL BIOPSY W/ LOOP ELECTRODE EXCISION 1995 PROCEDURE: [place] CONIZATION CERVIX W/WO D&C RPR ELTRD EXC [...] drink = 0.6 oz pur e alcohol) Housing Instability Answer Date Recorde d Are you worried that in the next 2 months you may not have stable housing? No 07/06/2025 Food Access & Nutrition Answer Date Rec orded Do you have access to a vari ety of food including fruits and vegetables? Yes 07/06/2025 Access to Healthcare Answer Date Record ed Within the last 3 months, ho w many times did you visit the emergency department for your medical care? 0 07/06/2025 Health Literacy Answer Date Recorded How often do you need to hav e someone help you when you read instructions, pamphlets, or other written material from your doctor or pharmacy? Never 07/06/2025 Caregiver: How often do you need to have someone help you when you read instructions, pamphlets, or other written material from your doctor or pharmacy? Not on file 07/06/2025 Financial Risk Answer Date Recorded How hard is it for you to pa y for the very basics like food, housing, medical care, and air conditioning / heating? Not very hard 07/06/2025 Transportation Answer Date Recorded Has the lack of transportati on kept you from meetings, work, or from getting things needed for daily living? No Has the lack of transportati on kept you from medical appointments or from getting medications? No 07/06/2025 Social Isolation Answer Date Recorded How often do you feel lonely or isolated from th ose around you? Never 07/06/2025 Food Risk Answer Date Recorded Within the past 12 months we worried whether our food would run out before we got money to buy more. Never true 07/06/2025 Within the past 12 months th e food we bought just didn't last and we didn't have money to get more. Never true 07/06/2025 Dependent Care Answer Date Recorded Do you need help finding or paying for care for your loved ones. For example, child welfare social worker or elderly care for an older adult? No 07/06/2025 Education Answer Date Recorded Do you think completing more education or training, like finishing a GED, going to college, or learning a trade, would be helpful for you? No 07/06/2025 Employment and Income Answer Date Recor ded During the last four weeks, have you been actively looking for work? No 07/06/2025 Living Situation Answer Date Recorded What is your living situation? Unrecognized valu e 07/06/2025 Comments Unknown Sex and Gender Information Value [...] Sign Reading Time Taken Comments Blood Pressure 121/80 07/07/2025 8:51 AM EDT Pulse 73 07/07/2025 8:51 AM EDT Temperature - - Respiratory Rate - - Oxygen Saturation - - Inhaled Oxygen Concentration - - Weight 66.6 kg (146 lb 12.8 oz) 07/07/2025 8:51 AM EDT Height 155 cm (5' 1.02 ) 07/07/2025 8:51 AM EDT Body Mass Index 27.72 07/07/2025 8:51 AM EDT Plan of Treatment Upcoming Encounters Date Type Department Care Team (Late st Contact Info) Description 09/16/2025 2:00 PM EST Office Visit Obstetrics and Gynecology - [address] [phone] Lianna Jordan CNM [address] [place] [address] Health Maintenance Due Date Last Done Comments Colorectal Cancer Screening: Colonoscopy 1974 HIV Screening 10/13/2022 Hepatitis C Screening 10/13/2022 Pneumococcal Vaccine: 50+ Years (1 of 1 - PCV) 2024 Zoster Vaccines (1 of 2) 2024 COVID-19 Vaccine (4 - season) 2025 09/24/2021, 03/04/2021, 02/04/2021 Influenza Vaccine (#1) 2025 , 07/15/2023, 08/10/2022, Additional history exists Social Influencers of Health Screening 07/06/2026 07/06/2025 Breast Cancer Screening 05/17/2027 05/17/20, 04/24/2024, 04/24/2024, Additional history exists Cervical Cancer Screening: HPV 12/26/2028 12/26/2023 DTaP,Tdap,and Td Vaccines (4 - Td or Tdap) 09/01/2031 09/01/2021, 07/24/2011, 10/24/2004 RSV Immunization Adult Patients (1 - 1-dose 75+ series) 2049 MMR Vaccines Aged Out 07/27/2009 No longer eligi ble based on patient's age to complete this topic Hepatitis B Vaccines Completed 01/17/2010, 08/19/2009, 07/20/2009 Depression Screening Completed 07/06/2025 HIB Vaccines Aged Out No longer eligi [...] Procedure Name Priority Date/Time Associated Diagnosis Comments MG MAMMO DIGITAL SCREENING W PETE BILAT Routine 05/17/2025 9:30 AM EDT Encounter for screening mammogram for breast cancer HM HPV Routine 12/26/2023 from Last 3 Months or Most Recently Relevant to Health Maintenance Results * MG Mammo Digital Screening w Pete bilat (05/17/2025 9:30 AM EDT) Anatomical Region Laterality Modality Breast Bilateral Mammography 05/18/2025 5:39 PM EDT Impressions 05/18/2025 5:44 PM EDT 1. No mammographic evidence of malignancy 2. Heterogeneous breast parenchyma BI-RADS CATEGORY: 2 - BENIGN RECOMMENDATION: Screening bilateral mammogram is recommended in 1 year. Mammo Location: [facility], [address] [place] [address], [address], . -------- FINAL REPORT -------- Dictated By: Keyanna Capps Dictated Date: 05/18/2025 17:39 ET Assigned Physician: Keyanna Capps Reviewed and Electronically Signed By: Keyanna Capps Signed Date: 05/18/2025 17:44 ET Workstation ID: [id number] Transcribed By: Self Edit Transcribed Date: 05/18/2025 [...] is recommended in 1 year. Mammo Location: [facility], [address] [place] [address], [address], . 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
--- NOTE | 2025-10-12 14:59 | HO.ANESPROP2 ---
Documented by User: Carmel Paulino NP 10/12/25 14:59 HPI - Anesthesia Eval Consult details Narrative: 50yo F for Upper Endoscopy PMFSH Active Problems Active Problems: All Active Problems Dysphagia, pharyngoesophageal phase (Acute) Muscle strain of right ankle (Acute) GERD (gastroesophageal reflux disease) (Acute) Mixed dyslipidemia (Acute) Diverticulosis of colon (Acute) Sessile colonic polyp (Acute) Past Medical History Medical History Muscle strain of right ankle Hx of herpes zoster Mixed dyslipidemia Hx of cervical cancer History of COVID-19 Family History Family History Mother Anxiety Migraine Sister Mental health disorder Father Prostate cancer Paternal Uncle Colon cancer Skin cancer (melanoma) Family history of problems with anesthesia: No Surgical History Surgical History Hx of colonoscopy Hx of hernia repair Hx of section Hx of tonsillectomy History of Problems with Anesthesia: No Social History Social History Household Members Other:: 2 daughters, 1 grandson- Housing: Apartment Patient Tobacco Use Status: Former Tobacco user e-Cigarette/Vaping Use: Never Used Use of substances other than those prescribed or required for medical reasons: No Advance Directives: No Advance Directives Information Provided: Yes service: No Current occupational status: employed Cognitive needs: No Hearing needs: No Vision needs: Yes Meds Allergies Allergy/AdvReac Type Severity Reaction Status Date / Time fluticasone (From Flonase) AdvReac Severe eyes Verified 10/15/25 11:10 burning amoxicillin AdvReac Vomiting Verified 10/15/25 11:10 Penicillins AdvReac rash Verified 10/15/25 11:10 Sulfa (Sulfonamide AdvReac Anaphylaxis Verified 10/15/25 11:10 Antibiotics) Tetracyclines AdvReac Vomiting Verified 10/15/25 11:10 Home Medications ?Medication ?Instructions ?Recorded ?Confirmed ?Last Taken ?Type levonorgestrel (Mirena) 1 device intrauterine DIRECTED 07/28/22 10/15/25 Unknown History loratadine 10 mg tablet (Claritin) 10 mg PO DAILY 07/28/22 10/15/25 Unknown History Probiotic 1 PO DAILY 05/31/23 05/27/25 Unknown History multivitamin 1 tab PO DAILY 05/31/23 10/15/25 Unknown History tretinoin 0.025 % topical cream 1 appl topical 03/30/25 05/27/25 Unknown History Assessment and Plan Assessment Anesthesia Assessment: Chart Reviewed Final Anesthetic Review Family History of Problems with Anesthesia: No History of Problems with Anesthesia: No Documented by User: Jeannie Gann MD 10/15/25 12:22 PMFSH Past Medical History Medical History Muscle strain of right ankle Hx of herpes zoster Mixed dyslipidemia Hx of cervical cancer History of COVID-19 Family History Family History Mother Anxiety Migraine Sister Mental health disorder Father Prostate cancer Paternal Uncle Colon cancer Skin cancer (melanoma) Surgical History Surgical History Hx of colonoscopy Hx of hernia repair Hx of section Hx of tonsillectomy Social History Social History Household Members Other:: 2 daughters, 1 grandson- Housing: Apartment Patient Tobacco Use Status: Former Tobacco user e-Cigarette/Vaping Use: Never Used Use of substances other than those prescribed or required for medical reasons: No Advance Directives: No Advance Directives Information Provided: Yes service: No Current occupational status: employed Cognitive needs: No Hearing needs: No Vision needs: Yes Meds Allergies Allergy/AdvReac Type Severity Reaction Status Date / Time fluticasone (From Flonase) AdvReac Severe eyes Verified 10/15/25 11:10 burning amoxicillin AdvReac Vomiting Verified 10/15/25 11:10 Penicillins AdvReac rash Verified 10/15/25 11:10 Sulfa (Sulfonamide AdvReac Anaphylaxis Verified 10/15/25 11:10 Antibiotics) Tetracyclines AdvReac Vomiting Verified 10/15/25 11:10 Home Medications ?Medication ?Instructions ?Recorded ?Confirmed ?Last Taken ?Type levonorgestrel (Mirena) 1 device intrauterine DIRECTED 07/28/22 10/15/25 Unknown History loratadine 10 mg tablet (Claritin) 10 mg PO DAILY 07/28/22 10/15/25 Unknown History Probiotic 1 PO DAILY 05/31/23 05/27/25 Unknown History multivitamin 1 tab PO DAILY 05/31/23 10/15/25 Unknown History tretinoin 0.025 % topical cream 1 appl topical 03/30/25 05/27/25 Unknown History Exam Airway Mallampati Class: II (cap lateral) TM Dist: >3cm Neck ROM: Full Heart: rrr Lungs: cta Assessment and Plan Assessment Anesthesia Assessment: Anesthesia Plan Discussed Final Anesthetic Review NPO: Yes ASA Class: II Final Preanesthetic Review: No Changes in Pt Med Stat, Meds/Allgs Chart Reviewed and Consent Obtained/Reviewed Patient Risk: Intermediate Procedure Risk: Intermediate Anesthetic Plan Anesthetic Plan: MAC: Disposition: Standard PACU
[2025-10-13 11:46] VITALS: BMI 27.0
[2025-10-15 11:12] VITALS: BMI 28.0
[2025-10-15 11:20] VITALS: BP 122/77; PULSE 80; RESP 20; TEMP 36.5; O2SAT 95
[2025-10-15 11:22] LABS: UPreg QC Valid YES
--- NOTE | 2025-10-15 11:25 | MHC.SHP ---
Pre-Procedural Eval Section A - 24 Hr Update-Section A only Date of Service: 10/15/25 The patient is an INPATIENT: No The patient has been examined within 24 hours of the surgical procedure. The History & Physical has been completed within 30 days and I have reviewed it.: No Section B - Complete if H&P > 30 days Chief Complaint: gerd,dysphagia Relevant Family History (Specify if Yes): Yes Relevant Social History: Tobacco Use (Former smoker) Present Medications: see Short Stay Collaborative assessment Medical History: Significant History (Muscle strain of right ankle Hx of herpes zoster Mixed dyslipidemia Hx of cervical cancer History of COVID-19) History of Previous Operations: Relevant previous surgery/procedure and date(s) (Hx of colonoscopy Hx of hernia repair Hx of section Hx of tonsillectomy) Allergies: Allergies Allergy/AdvReac Type Severity Reaction Status Date / Time fluticasone (From Flonase) AdvReac Severe eyes Verified 10/15/25 11:10 burning amoxicillin AdvReac Vomiting Verified 10/15/25 11:10 Penicillins AdvReac rash Verified 10/15/25 11:10 Sulfa (Sulfonamide AdvReac Anaphylaxis Verified 10/15/25 11:10 Antibiotics) Tetracyclines AdvReac Vomiting Verified 10/15/25 11:10 Review of Systems Sugical H&P ROS: Negative: Constitution, Cardiovascular, Respiratory and Gastrointestinal Exam Surgical H&P Exam: Normal: Heart, Normal: Lungs, Normal: Extremities and Normal: Abdomen Plan Diagnosis/Plan: Unchanged I have reviewed the history and physical and performed a pertinent physical examination on my patient. No changes have occurred unless specified. Time Spent With Patient Time: Total time managing care of this patient today ____ minutes.
--- NOTE | 2025-10-15 12:45 | W.PM.OPN ---
Operative Note Operative Note Date of Service: 10/15/25 Narrative: FLEXIBLE TRANSORAL UPPER GASTROINTESTINAL ENDOSCOPY WITH BIOPSIES Pre-op diagnosis: GERD, Dyspahgia Post-op diagnosis: GERD, esophagitis, Gastritis, Specimens and Sources: : a- gastric antrum bxs r/o h pylori ?b- gastric body bxs ?c- gastric polyp ?d-ge junction bxs r/o barretts ?e- distal esophagus bxs r/o eoe ?f- mid esophagus bxs r/o eoe ?g: proximal esophagus bxs r/o eoe Endoscopist:? Graeme Vora MD Anesthesia:?MAC UPPER ENDOSCOPY Consent: Indications for the procedure and potential complications of bleeding, perforation, reaction to medications and missed diagnosis were discussed with the patient and informed consent was obtained. Instrument: Olympus GIF H 190 mid size upper endoscope Monitoring: Vital signs and clinical assessment, continuous EKG monitoring, Pulse oximetry, Carbon Dioxide monitoring and blood pressure monitoring were done throughout the procedure. Procedure: The patient was placed in the left lateral decubitis position and pre-procedure medications were administered and a bite block was placed. The endoscope was inserted into the mouth and advanced under direct vision to the third part of duodenum. A careful inspection was made as the upper endoscope was withdrawn including a retroflexed examination of the proximal stomach; Findings and interventions are described below. Findings: Larynx: Normal Esophagus: GE junction at 35 cms. A 1.5 cms tongue of possible Barretts - biopsied. Superficial ulcerations and exudate noted in the mid and distal esophagus with normal mucosa in the proximal esophagus. Biopsies were obtained from proximal, mid and distal esophagus to check for EOE. Stomach: Moderate diffuse gastric erythema - biopsies were obtained from the gastric body and antrum. A few 2-4 mm benign appearing polyps in the gastric body and fundus - 1 polyp was biopsied. Grade 2 flap valve on retroflexed examination of the cardia. Duodenum: Normal bulb and descending duodenum Intervention: Biopsies as noted above Impression and Post Procedure Diagnosis: Endoscopy Findings: ESOPHAGUS: STOMACH: DUODENUM: Plan: Pt has a FU appointment on 11/25/[address] Vora. Above findings were reviewed with the patient and relevant handouts were given and the discharge area.
[2025-10-15 12:48] VITALS: BP 103/53; PULSE 85; RESP 86; TEMP 36.6; O2SAT 95
[2025-10-15 13:00] VITALS: BP 104/71; PULSE 85; RESP 78; TEMP 36.6; O2SAT 95
== END 2025-10-15 13:37 | disposition home or self-care (01) ==
PROVIDERS: Nurse Practitioner; PCP Internal Medicine; Visit Provider Internal Medicine Gastroenterology
PROC: 0DJ08ZZ Inspection of Upper Intestinal Tract, Via Natural or Artificial Opening Endoscopic (ICD-10-PCS; CPT 43235; principal; 2025-10-15 12:40)
DX: R13.14 Dysphagia, pharyngoesophageal phase (principal); K21.00 Gastro-esophageal reflux disease with esophagitis, without bleeding; K31.7 Polyp of stomach and duodenum
CPT/HCPCS: 43239; 81025; 88305; 88313; 88342; J2003; J2704

== ENCOUNTER → 2025-10-15 10:49 | Outpatient (BNV) | payer OTHER, SELFPAY | PROVIDERS: PCP Internal Medicine; Visit Provider Internal Medicine Gastroenterology | DX: K21.00 Gastro-esophageal reflux disease with esophagitis, without bleeding (principal); K29.70 Gastritis, unspecified, without bleeding; K31.7 Polyp of stomach and duodenum | CPT/HCPCS: 43239 ==

== ENCOUNTER 2025-10-20 07:45 | Outpatient (REF) | payer OTHER, SELFPAY ==
--- OUTSIDE RECORDS SUMMARY | 2025-10-20 07:48 | XMS_ITS | Clinical Summary ---
Author Organization [facility] [place] [address] [facility] Address [address] [place] [address] Phone Care Team Providers Care Pet Handler Name Role Phone Cheri Horner MD Primary Care Provider [phone] Allergies Active Allergy Reactions Criticality Noted Date Comments Erythromycin 12/24/2006 gi distress Fluticasone Burning Eyes,Inflammation 10/11/2025 Penicillins Rash 12/20/2005 Sulfa (Sulfonamide Antibiotics) Wheezing 12/20/2005 Tetracycline 12/24/2006 gi distress Medications levonorgestreL (MIRENA) [...] twice wkly for maintenance 42.5 g 3 07/07/20 25 Active hydrOXYzine HCL (ATARAX) 10 mg tablet 05/05/20 25 Active estradioL (VIVELLE-DOT) 0.025 mg/[address] 1 patch on the skin 2 (two) times a week. 24 patch 3 10/11/20 25 026 Active estradioL (ESTRACE) 1 mg tablet Take 1 tablet (1 mg total) by mouth 1 (one) time each day. 90 tablet 3 07/07/20 25 025 Discontinued Active Problems Problem Noted Date Diagnosed Date Postmenopausal HRT (hormone replacement therapy) 10/11/2025 History of loop electrical excision procedure (L EEP) 10/11/2025 GERD (gastroesophageal reflux disease) 7 Abnormal Pap smear of cervix 01/21/2006 Overview (11/05/2024): age 21, laser treatment Encounters Date Type Department Care Team Description 10/11/2025 2:00 PM EST Office Visit Obstetrics and Gynecology [address] [id number] Lianna Jordan CNM Encounter for annual routine gynecological examination (Primary Dx); Contraceptive, surveillance, intrauterine device; Postmenopausal HRT (hormone replacement therapy); History of loop electrical excision procedure (LEEP) from Last 3 Months Immunizations Immunization Administration Dates Next Due Hepatitis B (Umbeszv-T-Xrjyd , Recombivax HB-Adult) 19yo and older 01/17/2010,08/19/2009,07/20/2009 [...] Father Diabetes Maternal Grandmother ag e 72 NH, cataract Colon polyps Mother osteoporosis Kidney failure [...] care for your loved ones. For example, manager child or elderly care for an older adult? [...] living situation? Unrecognized valu e 07/06/2025 Comments No Sex and Gender Information Value Date Recorded Sex Assigned at Not on file Legal Sex Female 4:04 AM EST Gender Identity Not on file Sexual Orientation Not on file Obstetrics History * This document contains information received from the source organization and may not represent a complete record from that organization. Para Term AB IAB SAB Ectopic Multiple Livin g Live Births 3 2 2 0 0 0 2 2 Date Outcome GA Total Labor Labor/2nd/3rd Weight Sex Type Anes PTL Ana A1 A5 Name Clin 12/07 Term F Vag-S pont Living [place] 12/31 Term F CS-Un spec Living Miah Last Filed Vital Signs Vital Sign Reading Time Taken Comments Blood Pressure 131/76 10/11/2025 2:10 PM EST Pulse 73 10/11/2025 2:10 PM EST Temperature - - Respiratory Rate - - Oxygen Saturation - - Inhaled Oxygen Concentration - - Weight 68.4 kg (150 lb 12.8 oz) 10/11/2025 2:10 PM EST Height 154.9 cm (5' 1 ) 10/11/2025 2:10 PM EST Body Mass Index 28.49 10/11/2025 2:10 PM EST Plan of Treatment Health Maintenance Due Date Last Done Comments Colorectal Cancer Screening: Colonoscopy 1975 HIV Screening 10/13/2022 Hepatitis C Screening 10/13/2022 Pneumococcal Vaccine: 50+ Years (1 of 1 - PCV) 2024 Zoster Vaccines (1 of 2) 2024 COVID-19 Vaccine (4 - season) 2025 09/24/2021, 03/04/2021, 02/04/2021 Social Influencers of Health Screening 07/06/2026 07/06/2025 [...] Hepatitis B Vaccines Completed 01/17/2010, 08/19/2009, 07/20/2009 Influenza Vaccine Completed 07/07/2025, , 07/15/2023, Additional history exists Depression Screening Completed 10/05/2025 HIB Vaccines Aged Out No longer eligi [...] is recommended in 1 year. Mammo Location: [facility], [address] [place] [address], [id number], . -------- FINAL REPORT -------- Dictated By: Keyanna Capps Dictated Date: 05/18/2025 17:39 ET Assigned Physician: Keyanna Capps Reviewed and Electronically Signed By: Keyanna Capps Signed Date: 05/18/2025 17:44 ET Workstation ID: [id number] Transcribed By: Self Edit Transcribed Date: 05/18/2025 [...] is recommended in 1 year. Mammo Location: [facility], [address] [place] [address], [id number], . -------- FINAL REPORT -------- Dictated By: Keyanna Capps Dictated Date: 05/18/2025 17:39 ET Assigned Physician: Keyanna Capps Reviewed and Electronically Signed By: Keyanna Capps Signed Date: 05/18/2025 17:44 ET Workstation ID: [id number] Transcribed By: Self Edit Transcribed Date: 05/18/2025 17:39 ET Cheri Horner MD IMG BI PROCEDURES Final Result * Cervical Cancer Screening: HPV (12/26/2023) Cervical Cancer Screening: HPV Abstracted ,negative us Historical Provider HEALTH MAINTENANCE Final Result from Last 3 Months or Most Recently Relevant to Health [place] [id number] Care Teams Pet Handler Relationship Specialty Start Date End Date Cheri Horner MD [address], [place] PCP - General 12/25/04
[2025-10-20 11:33] LABS: Alanine Aminotransferase 34 U/L (0-31); Aspartate Amino Transferase 28 U/L (5-31); Cholesterol 265 mg/dL (<200); HDL Cholesterol 39 mg/dL (>40); Triglycerides 266 mg/dL (<150)
== END 2025-10-20 07:46 | disposition home or self-care (01) ==
LOC: HO.HMGCLDS 07:45
PROVIDERS: PCP Internal Medicine; Visit Provider Internal Medicine
DX: E78.2 Mixed hyperlipidemia (principal); Z13.21 Encounter for screening for nutritional disorder; Z86.39 Personal history of other endocrine, nutritional and metabolic disease
CPT/HCPCS: 36415; 80061; 82306; 84450; 84460